=== PATIENT | female | born 1935 | race Caucasian/White ===

== ENCOUNTER → 2016-03-21 | Outpatient (REF) | payer MEDICARE, MEDICAID ==
[~2016-03-21] MED LIST: /ANUSHCSU PR; /ATOR40TA; /ATOR40TA OR; /ATOR40TA PO; /ESOM40CA PO; /MUPI30CR TOP; /OMEP10CA OR; /ONDA4TA OR; /WARF3TA PO; /WARF4TA; /WARF4TA PO; /WARF5TA PO; ABIL2TAB2 PO; ACET-654 PO; ACET500T2 OR; ACET65TA; AKWASOL OU; AMBI10TA; ANUC25SU PR; ARTISOL2 OU; ATEN25TA; ATEN25TA OR; ATEN50TA2 PO; BISA5TAB64 PO; BISAC5TA PO; CALC25TA PO; CALCIUM CITRATE; CALCIUM PO; CENTTAB OR; COLA100C2 OR; COUM; COUM1TAB19 PO; DIGO0.126 OR; DIGO25TA PO; DIOV320T PO; DOCU10ELUD PO; DULC10SU2 PR; ENEMENE3 PR; FERR325T PO; FERR325T3 PO; FURO40TA2 OR; GUAI100S7 PO; HYDR1OI TOP; IMDU60TA PO; IRON325T3 PO; ISOS60TA2 PO; LASI40TA PO; LEFL1TAB4 PO; LEFL20TA PO; LEFLUNOMIDE PO; LIDO1DIS2 TD; LOPE2CA PO; Leflunomide; MAALSUS18 PO; MAGN500T2 OR; MICR10CA PO; MILKSUS OR; MILKSUS PO; MIRALEX PO; MULTIVIT; MULTIVIT PO; MYCOSTATIN TOP; NEXI40CA PO; NEXI40GR OR; NITR0.4S; NITR0.4S SL; NITR4TASL SL; NYST100024 TOP; NYST10PW TOP; OLAN5TAB PO; OSCA200T PO; PERC5TAB8 OR; PERC7.5T8 OR; PLAV75TA2; PLAVIX PO; PRED10TA PO; PRED10TA2; PRED5TAB OR; RANI75TA2 OR; RECLAST; REMICADE; Remicade; SENN8.6T5 OR; SERT25TA2; TENO25TA PO; THERTAB30 PO; TYLE325T5 PO; ULTR50TA PO; VALS40TA; VALS40TA OR; VALS80CA; VALS80CA OR; VENTAER IN; VIT D 2000 PO; VIT D PO; VITA-121 PO; VITA100037 PO; VITA100041 PO; VITA200038 PO; VITA500C PO; VITA500C24 PO; VITAMIN D; VITAMIN D50000 UNT; VITD PO; WARF-18 PO; WARF-58 PO; WARF1TAB OR; ZANT150T; fleet enema PR; vitamin b 12 PO
[2016-03-21 11:16] LABS: MEAN CORPUSCULAR HEMOGLOBIN 26.9 pg (27.0-33.0); MEAN CORPUSCULAR HGB CONC 31.7 g/dl (32.0-36.5); MEAN CORPUSCULAR VOLUME 84.9 fl (80.0-96.0); RED CELL DISTRIBUTION WIDTH 14.1 % (11.5-14.5); WHITE BLOOD COUNT 6.1 K/mm3 (4.0-10.0)
[2016-03-21 11:37] LABS: ALBUMIN 2.5 GM/DL (3.2-5.2); ALBUMIN/GLOBULIN RATIO 0.74 (1.00-1.93); ALKALINE PHOSPHATASE 78 U/L (45-117); ALT/SGPT 16 U/L (12-78); ANION GAP 8 MEQ/L (8-16); AST/SGOT 7 U/L (15-37); BILIRUBIN,TOTAL 0.2 MG/DL (0.2-1.0); BLOOD UREA NITROGEN 17 MG/DL (7-18); CALCIUM LEVEL 9.4 MG/DL (8.8-10.2); CARBON DIOXIDE LEVEL 27 MEQ/L (21-32); CHLORIDE LEVEL 105 MEQ/L (98-107); CREATININE FOR GFR 0.82 MG/DL (0.55-1.02); GLOMERULAR FILTRATION RATE > 60.0 (>32); GLUCOSE, FASTING 145 MG/DL (83-110); POTASSIUM SERUM 3.6 MEQ/L (3.5-5.1); SODIUM LEVEL 140 MEQ/L (136-145); TOTAL PROTEIN 5.9 GM/DL (6.4-8.2)
== END ==
PROVIDERS: ATTEND Internal Medicine
DX: I48.91 Unspecified atrial fibrillation (principal); E55.9 Vitamin D deficiency, unspecified

== ENCOUNTER → 2016-03-28 | Outpatient (REF) | payer MEDICARE, MEDICAID ==
[2016-03-28 12:24] LABS: MEAN CORPUSCULAR HEMOGLOBIN 26.6 pg (27.0-33.0); MEAN CORPUSCULAR HGB CONC 31.1 g/dl (32.0-36.5); MEAN CORPUSCULAR VOLUME 85.4 fl (80.0-96.0); RED CELL DISTRIBUTION WIDTH 14.3 % (11.5-14.5); WHITE BLOOD COUNT 7.7 K/mm3 (4.0-10.0)
[2016-03-28 12:40] LABS: ANION GAP 9 MEQ/L (8-16); BLOOD UREA NITROGEN 17 MG/DL (7-18); CALCIUM LEVEL 9.1 MG/DL (8.8-10.2); CARBON DIOXIDE LEVEL 28 MEQ/L (21-32); CHLORIDE LEVEL 100 MEQ/L (98-107); CREATININE FOR GFR 0.85 MG/DL (0.55-1.02); GLOMERULAR FILTRATION RATE > 60.0 (>32); GLUCOSE, FASTING 170 MG/DL (83-110); POTASSIUM SERUM 3.9 MEQ/L (3.5-5.1); SODIUM LEVEL 137 MEQ/L (136-145)
== END ==
PROVIDERS: ATTEND Internal Medicine
DX: I48.91 Unspecified atrial fibrillation (principal); E55.9 Vitamin D deficiency, unspecified

== ENCOUNTER → 2016-04-04 | Outpatient (REF) | payer MEDICARE, MEDICAID ==
[2016-04-04 09:24] LABS: MEAN CORPUSCULAR HEMOGLOBIN 26.8 pg (27.0-33.0); MEAN CORPUSCULAR VOLUME 83.6 fl (80.0-96.0); RED CELL DISTRIBUTION WIDTH 14.3 % (11.5-14.5); WHITE BLOOD COUNT 5.9 K/mm3 (4.0-10.0)
[2016-04-04 09:39] LABS: ANION GAP 8 MEQ/L (8-16); BLOOD UREA NITROGEN 18 MG/DL (7-18); CALCIUM LEVEL 9.4 MG/DL (8.8-10.2); CARBON DIOXIDE LEVEL 30 MEQ/L (21-32); CHLORIDE LEVEL 103 MEQ/L (98-107); CREATININE FOR GFR 0.68 MG/DL (0.55-1.02); GLOMERULAR FILTRATION RATE > 60.0 (>32); GLUCOSE, FASTING 76 MG/DL (83-110); POTASSIUM SERUM 3.8 MEQ/L (3.5-5.1); SODIUM LEVEL 141 MEQ/L (136-145)
== END ==
PROVIDERS: ATTEND Internal Medicine
DX: I48.91 Unspecified atrial fibrillation (principal); E55.9 Vitamin D deficiency, unspecified

== ENCOUNTER → 2016-04-11 | Outpatient (REF) | payer MEDICARE, MEDICAID ==
[2016-04-11 10:48] LABS: MEAN CORPUSCULAR HEMOGLOBIN 27.1 pg (27.0-33.0); MEAN CORPUSCULAR HGB CONC 32.2 g/dl (32.0-36.5); RED CELL DISTRIBUTION WIDTH 14.4 % (11.5-14.5); WHITE BLOOD COUNT 6.3 K/mm3 (4.0-10.0)
[2016-04-11 11:03] LABS: ANION GAP 10 MEQ/L (8-16); BLOOD UREA NITROGEN 19 MG/DL (7-18); CALCIUM LEVEL 9.1 MG/DL (8.8-10.2); CARBON DIOXIDE LEVEL 29 MEQ/L (21-32); CHLORIDE LEVEL 101 MEQ/L (98-107); CREATININE FOR GFR 0.88 MG/DL (0.55-1.02); GLOMERULAR FILTRATION RATE > 60.0 (>32); GLUCOSE, FASTING 170 MG/DL (83-110); POTASSIUM SERUM 3.7 MEQ/L (3.5-5.1); SODIUM LEVEL 140 MEQ/L (136-145)
== END ==
PROVIDERS: ATTEND Internal Medicine
DX: E55.9 Vitamin D deficiency, unspecified (principal); I48.91 Unspecified atrial fibrillation

== ENCOUNTER → 2016-04-18 | Outpatient (REF) | payer MEDICARE, MEDICAID ==
[2016-04-18 11:01] LABS: MEAN CORPUSCULAR HEMOGLOBIN 26.4 pg (27.0-33.0); MEAN CORPUSCULAR HGB CONC 31.1 g/dl (32.0-36.5); MEAN CORPUSCULAR VOLUME 84.8 fl (80.0-96.0); RED CELL DISTRIBUTION WIDTH 14.5 % (11.5-14.5); WHITE BLOOD COUNT 6.8 K/mm3 (4.0-10.0)
[2016-04-18 11:21] LABS: ALBUMIN 2.6 GM/DL (3.2-5.2); ALBUMIN/GLOBULIN RATIO 0.72 (1.00-1.93); ALKALINE PHOSPHATASE 86 U/L (45-117); ALT/SGPT 19 U/L (12-78); ANION GAP 8 MEQ/L (8-16); AST/SGOT 12 U/L (15-37); BILIRUBIN,TOTAL 0.2 MG/DL (0.2-1.0); BLOOD UREA NITROGEN 17 MG/DL (7-18); CALCIUM LEVEL 9.3 MG/DL (8.8-10.2); CARBON DIOXIDE LEVEL 31 MEQ/L (21-32); CHLORIDE LEVEL 102 MEQ/L (98-107); CREATININE FOR GFR 0.76 MG/DL (0.55-1.02); GLOMERULAR FILTRATION RATE > 60.0 (>32); GLUCOSE, FASTING 143 MG/DL (83-110); POTASSIUM SERUM 3.6 MEQ/L (3.5-5.1); SODIUM LEVEL 141 MEQ/L (136-145); TOTAL PROTEIN 6.2 GM/DL (6.4-8.2)
== END ==
PROVIDERS: ATTEND Internal Medicine
DX: I48.91 Unspecified atrial fibrillation (principal)

== ENCOUNTER → 2016-04-23 | Outpatient (REF) | payer MEDICARE, MEDICAID ==
[2016-04-23 11:07] LABS: INR 2.59
== END ==
PROVIDERS: ATTEND Internal Medicine
DX: I48.91 Unspecified atrial fibrillation (principal); Z79.01 Long term (current) use of anticoagulants

== ENCOUNTER → 2016-04-25 | Outpatient (REF) | payer MEDICARE, MEDICAID ==
[2016-04-25 11:21] LABS: MEAN CORPUSCULAR HEMOGLOBIN 26.3 pg (27.0-33.0); MEAN CORPUSCULAR HGB CONC 31.2 g/dl (32.0-36.5); MEAN CORPUSCULAR VOLUME 84.3 fl (80.0-96.0); RED CELL DISTRIBUTION WIDTH 14.5 % (11.5-14.5); WHITE BLOOD COUNT 6.5 K/mm3 (4.0-10.0)
[2016-04-25 11:43] LABS: ANION GAP 7 MEQ/L (8-16); BLOOD UREA NITROGEN 20 MG/DL (7-18); CALCIUM LEVEL 8.8 MG/DL (8.8-10.2); CARBON DIOXIDE LEVEL 30 MEQ/L (21-32); CHLORIDE LEVEL 103 MEQ/L (98-107); CREATININE FOR GFR 0.88 MG/DL (0.55-1.02); GLOMERULAR FILTRATION RATE > 60.0 (>32); GLUCOSE, FASTING 128 MG/DL (83-110); POTASSIUM SERUM 3.8 MEQ/L (3.5-5.1); SODIUM LEVEL 140 MEQ/L (136-145)
== END ==
PROVIDERS: ATTEND Internal Medicine
DX: I48.91 Unspecified atrial fibrillation (principal); E55.9 Vitamin D deficiency, unspecified

== ENCOUNTER → 2016-05-02 | Outpatient (REF) | payer MEDICARE, MEDICAID ==
[2016-05-02 09:34] LABS: MEAN CORPUSCULAR HEMOGLOBIN 26.9 pg (27.0-33.0); MEAN CORPUSCULAR HGB CONC 31.9 g/dl (32.0-36.5); MEAN CORPUSCULAR VOLUME 84.4 fl (80.0-96.0); RED CELL DISTRIBUTION WIDTH 14.9 % (11.5-14.5); WHITE BLOOD COUNT 7.2 K/mm3 (4.0-10.0)
[2016-05-02 10:04] LABS: ANION GAP 9 MEQ/L (8-16); BLOOD UREA NITROGEN 19 MG/DL (7-18); CALCIUM LEVEL 9.1 MG/DL (8.8-10.2); CARBON DIOXIDE LEVEL 28 MEQ/L (21-32); CHLORIDE LEVEL 104 MEQ/L (98-107); CREATININE FOR GFR 0.88 MG/DL (0.55-1.02); GLOMERULAR FILTRATION RATE > 60.0 (>32); GLUCOSE, FASTING 179 MG/DL (83-110); POTASSIUM SERUM 3.9 MEQ/L (3.5-5.1); SODIUM LEVEL 141 MEQ/L (136-145)
== END ==
PROVIDERS: ATTEND Internal Medicine
DX: E55.9 Vitamin D deficiency, unspecified (principal); I48.91 Unspecified atrial fibrillation

== ENCOUNTER → 2016-05-03 | Outpatient (CLI) | payer MEDICARE, MEDICAID ==
--- NOTE | 2016-05-03 10:52 | REP ---
CT CERVICAL SPINE WITHOUT CONTRAST: HISTORY: Cervicalgia. COMPARISON: 11/07/2013. Disc bulges with associated osteophyte formation are present at the C3-4 through C6-7 levels. There is minimal to mild narrowing of the spinal canal. Uncinate process and/or facet hypertrophy are present at the C3-4 through C7-T1 levels. These findings produce minimal to moderate narrowing of the neural foramina. The C3-4 through C6-7 intervertebral discs are decreased in height consistent with disc degeneration. A 6 mm hypodensity is present in the right thyroid lobe. This most likely represents a cyst. The left thyroid lobe is normal. IMPRESSION: 1. There is cervical spondylosis at the C3-4 through C7-T1 levels. 2. There is a 6 mm hypodensity in the right thyroid lobe. This most likely represents a cyst. Ultrasound may be helpful for further evaluation. Signed by Marko Parsons MD 05/03/2016 10:53 A
--- NOTE | 2016-05-03 10:55 | REP ---
CT HEAD WITHOUT CONTRAST: HISTORY: Cervicalgia. COMPARISON: 06/13/2015. Areas of decreased attenuation are present in the basal ganglia and right thalamus. These represent old lacunar infarctions. Areas of decreased attenuation are present in the periventricular and subcortical white matter. This represents small vessel ischemic disease. There is no intraparenchymal hemorrhage, mass or midline shift. The ventricular system and cortical sulci are dilated consistent with moderate volume loss. There is no extracerebral collection. The visualized sinuses are clear. IMPRESSION: 1. 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 2. Small vessel ischemic disease. 3. Moderate volume loss. Signed by Marko Parsons MD 05/03/2016 10:56 A
== END ==
LOC: M RAD 09:56
PROVIDERS: ATTEND Psychiatry & Neurology Neurology
DX: M43.02 Spondylolysis, cervical region (principal); M54.2 Cervicalgia; R20.2 Paresthesia of skin; I63.09 Cerebral infarction due to thrombosis of other precerebral artery

== ENCOUNTER → 2016-05-22 | Outpatient (REF) | payer MEDICARE, MEDICAID ==
[2016-05-22 11:26] LABS: MEAN CORPUSCULAR HGB CONC 31.7 g/dl (32.0-36.5); MEAN CORPUSCULAR VOLUME 85.4 fl (80.0-96.0); WHITE BLOOD COUNT 7.8 K/mm3 (4.0-10.0)
[2016-05-22 12:06] LABS: CREATININE FOR GFR 0.96 MG/DL (0.55-1.02); GLOMERULAR FILTRATION RATE 59.2 (>32); PERCENT SATURATION 13.8 % (13.2-37.4); POTASSIUM SERUM 4.1 MEQ/L (3.5-5.1)
== END ==
PROVIDERS: ATTEND Internal Medicine
DX: D64.9 Anemia, unspecified (principal); I10 Essential (primary) hypertension; E55.9 Vitamin D deficiency, unspecified

== ENCOUNTER → 2016-06-01 | Outpatient (REF) | payer MEDICARE, MEDICAID ==
[2016-06-01 12:03] LABS: MEAN CORPUSCULAR HEMOGLOBIN 27.2 pg (27.0-33.0); MEAN CORPUSCULAR HGB CONC 31.8 g/dl (32.0-36.5); MEAN CORPUSCULAR VOLUME 85.5 fl (80.0-96.0); RED CELL DISTRIBUTION WIDTH 13.8 % (11.5-14.5); WHITE BLOOD COUNT 7.2 K/mm3 (4.0-10.0)
[2016-06-01 12:40] LABS: ANION GAP 10 MEQ/L (8-16); BLOOD UREA NITROGEN 16 MG/DL (7-18); CALCIUM LEVEL 9.1 MG/DL (8.8-10.2); CARBON DIOXIDE LEVEL 25 MEQ/L (21-32); CHLORIDE LEVEL 104 MEQ/L (98-107); CREATININE FOR GFR 0.67 MG/DL (0.55-1.02); GLOMERULAR FILTRATION RATE > 60.0 (>32); GLUCOSE, FASTING 90 MG/DL (83-110); POTASSIUM SERUM 4.5 MEQ/L (3.5-5.1); SODIUM LEVEL 139 MEQ/L (136-145)
--- NOTE | 2016-06-01 13:36 | REP ---
Chest x-ray: AP semi-erect view. History: Cough and wheezing. Fever. Comparison study: May 29, 2015. Findings: A dual lead pacemaker is seen in the right heart via the left side as before. Heart is mildly enlarged unchanged. The lungs are symmetrically aerated. No infiltrate is seen. Pulmonary vasculature is not increased. No evidence of pleural effusion or pulmonary edema. Impression: Cardiomegaly with pacemaker. No acute infiltrate. Signed by Miguel Angel Marie MD 06/01/2016 02:05 P
== END ==
PROVIDERS: ATTEND Internal Medicine
DX: R50.9 Fever, unspecified (principal); R05 Cough

== ENCOUNTER → 2016-08-22 | Outpatient (CLI) | payer MEDICARE, MEDICAID ==
--- NOTE | 2016-08-22 17:05 | REP ---
CT HEAD WITHOUT CONTRAST: HISTORY: Dysphagia. COMPARISON: 05/03/2016. Areas of increased attentuation are present in the basal ganglia and right thalamus. These represent old lacunar infarctions. Areas of decreased attentuation are present in the periventricular and subcortical white matter. This represents small vessel ischemic disease. There is no intraparenchymal hemorrhage, mass, or midline shift. The ventricular system and cortical sulci are dilated consistent with moderate volume loss. There is no extracerebral collection. The visualized sinuses are clear. IMPRESSION: 1. Old bilateral basal ganglia and right thalamus lacunar infarctions. 2. Small vessel ischemic disease. 3. Moderate volume loss. Signed by Marko Parsons MD 08/22/2016 05:14 P
== END ==
LOC: M RAD 16:29
PROVIDERS: ATTEND Physician Assistant
DX: R13.12 Dysphagia, oropharyngeal phase (principal); I10 Essential (primary) hypertension; E55.9 Vitamin D deficiency, unspecified; E03.9 Hypothyroidism, unspecified; D64.9 Anemia, unspecified; Z88.2 Allergy status to sulfonamides; Z91.040 Latex allergy status; Z88.0 Allergy status to penicillin; Z88.8 Allergy status to other drugs, medicaments and biological substances

== ENCOUNTER → 2016-08-22 | Outpatient (REF) | payer MEDICARE, MEDICAID ==
[2016-08-22 10:37] LABS: MEAN CORPUSCULAR HEMOGLOBIN 26.6 pg (27.0-33.0); MEAN CORPUSCULAR HGB CONC 31.3 g/dl (32.0-36.5); MEAN CORPUSCULAR VOLUME 85.1 fl (80.0-96.0); RED CELL DISTRIBUTION WIDTH 13.5 % (11.5-14.5); WHITE BLOOD COUNT 5.4 K/mm3 (4.0-10.0)
[2016-08-22 11:03] LABS: ANION GAP 9 MEQ/L (8-16); BLOOD UREA NITROGEN 14 MG/DL (7-18); CALCIUM LEVEL 9.2 MG/DL (8.8-10.2); CARBON DIOXIDE LEVEL 25 MEQ/L (21-32); CHLORIDE LEVEL 101 MEQ/L (98-107); FERRITIN 237 NG/ML (8-252); GLOMERULAR FILTRATION RATE > 60.0 (>32); GLUCOSE, FASTING 189 MG/DL (83-110); PERCENT SATURATION 15.1 % (13.2-37.4); POTASSIUM SERUM 4.2 MEQ/L (3.5-5.1); SODIUM LEVEL 135 MEQ/L (136-145); TOTAL IRON BINDING CAPACITY 166 UG/DL (250-450)
== END ==
PROVIDERS: ATTEND Internal Medicine
DX: D64.9 Anemia, unspecified (principal); I10 Essential (primary) hypertension; E55.9 Vitamin D deficiency, unspecified; E03.9 Hypothyroidism, unspecified

== ENCOUNTER 2016-09-22 09:00 | Inpatient (IN) | payer MEDICARE, MEDICAID ==
[~2016-09-22] VITALS: Ht 160 cm; Wt 72.2 kg
[~2016-09-22 09:00] MED LIST changes: +ABIL1TAB13 PO; -ABIL2TAB2 PO; -ACET-654 PO; +ACET1TAB17 PO; +ENEMENE16 PR; -ENEMENE3 PR; +FERR1TAB8 PO; -FERR325T PO; -NYST100024 TOP; +NYST1POW9 TOP; +VITA-182 PO; -VITA100041 PO
[2016-09-22] MEDS: DOCUSATE SODIUM 100 MG CAP PO SCH ×2 (09:00→20:26)
[2016-09-22] MEDS: SENOKOT S TAB PO SCH ×2 (09:00→20:27)
[2016-09-22] MEDS ORDERED: TYLE500T78 PO (09:22)
[2016-09-22] MEDS ORDERED: ROXI1TAB2 PO (09:22)
[2016-09-22] MEDS ORDERED: NUED20CA PO (09:22)
[2016-09-22] MEDS ORDERED: XARE20TA PO (09:22)
[2016-09-22] MEDS ORDERED: PRED5TA PO (09:22)
[2016-09-22] MEDS ORDERED: MYSO50TA5 PO (09:22)
[2016-09-22] MEDS ORDERED: NS 500 ML IV ONE ×2 (09:45→10:30)
[2016-09-22 09:54] LABS: BASO % 0.2 % (0.0-1.0); EOS % 0.5 % (0.0-3.0); LARGE UNSTAINED CELL # 0.1 K/mm3 (0.0-0.4); LARGE UNSTAINED CELL % 1.5 % (0.0-4.0); LYMPH # 0.9 K/mm3 (1.5-4.5); MEAN CORPUSCULAR HEMOGLOBIN 27.5 pg (27.0-33.0); MEAN CORPUSCULAR HGB CONC 32.2 g/dl (32.0-36.5); MEAN CORPUSCULAR VOLUME 85.5 fl (80.0-96.0); MONO # 0.5 K/mm3 (0.0-0.8); MONO % 6.6 % (0.0-5.0); NEUTROPHILS # 6.7 K/mm3 (1.8-7.7); NEUTROPHILS % 81.2 % (36.0-66.0); PLATELET COUNT, AUTOMATED 136 k/mm3 (150-450); RED CELL DISTRIBUTION WIDTH 14.8 % (11.5-14.5); WHITE BLOOD COUNT 8.2 K/mm3 (4.0-10.0)
[2016-09-22 10:03] LABS: INR 2.23
--- NOTE | 2016-09-22 10:04 | REP ---
Clinical: Cerebrovascular accident. Comparison: 08/22/2016. Findings: Age-related atrophy and microvascular ischemic changes are appreciated. The ventricles and sulci are symmetric. Simmons-white differentiation is maintained. There is no evidence for acute intracranial hemorrhage, mass/mass effect, pathology or infarction. No extra-axial fluid collection. Calvarium is intact. Paranasal sinuses and mastoid air cells are clear. Impression: Age related atrophy and microvascular ischemic changes. No acute intracranial hemorrhage, infarction, or mass/mass effect. Signed by Boni Nieto MD 09/22/2016 09:56 A
--- NOTE | 2016-09-22 10:08 | REP ---
Clinical: Fever and cough. Comparison: 06/01/2016. Findings: Chronic stable changes are appreciated. Trace superimposed right lower lobe atelectasis suggested. No definite effusion. No pneumothorax. Skeletal structures stable. Impression: Chronic changes with suspected basilar atelectasis. Signed by Boni Nieto MD 09/22/2016 10:00 A
[2016-09-22 10:24] LABS: ABG BASE EXCESS -0.7 (-2.0-2.0); ABG HCO3 22.7 MEQ/L (22.0-26.0); ABG PARTIAL PRESSURE CO2 32.8 mmHg (35.0-45.0); ABG PARTIAL PRESSURE O2 98.6 mmHg (75.0-100.0); ABG STANDARD HCO3 23.9 MEQ/L (22.0-26.0); ABG TOTAL CO2 23.7 MEQ/L (23.0-31.0); ABG pH (ARTERIAL) 7.458 UNITS (7.350-7.450)
[2016-09-22] MEDS ORDERED: ACETAMINOPHEN 650 MG SUPP PR ONE (10:30)
[2016-09-22 10:31] LABS: ANION GAP 7 MEQ/L (8-16); BLOOD UREA NITROGEN 23 MG/DL (7-18); CARBON DIOXIDE LEVEL 26 MEQ/L (21-32); CHLORIDE LEVEL 101 MEQ/L (98-107); CREATININE FOR GFR 0.82 MG/DL (0.55-1.02); GLOMERULAR FILTRATION RATE > 60.0 (>32); GLUCOSE, FASTING 176 MG/DL (83-110); SODIUM LEVEL 134 MEQ/L (136-145)
[2016-09-22] MEDS ORDERED: VITA-122 PO (10:36)
[2016-09-22] MEDS ORDERED: IMIPENEM/CILASTATIN 500 MG in D5W MINI-BAG PLUS 100 ML IV ONE (11:15)
[2016-09-22] MEDS ORDERED: MOM 30ML SUSPENSION UDC PO PRN (12:45)
[2016-09-22] MEDS ORDERED: BISACODYL 10 MG SUPP PR PRN (12:45)
[2016-09-22] MEDS ORDERED: FLEET ENEMA PR PRN (12:45)
[2016-09-22] MEDS ORDERED: ONDANSETRON 4MG/2ML VIAL (J2405) IV PRN (13:00)
[2016-09-22] MEDS ORDERED: NS 1,000 ML IV SCH (13:30)
[2016-09-22 14:24] VITALS: BP 119/80
[2016-09-22 16:00] VITALS: BP 121/81
--- NOTE | 2016-09-22 16:17 | PHACANCOPD ---
PHARMACY VANCOMYCIN DOSING Pt Demographics Demographics Patient Age:81 , Weight:73.800 , Gender: female Adjusted Body Weight Date: 09/22/16, Adjusted Body Weight: Kg Events Past 24 Hours Events Past 24 Hours: YES: Pending Diagnostics Vancomycin Vancomycin indication: pyelonephritis Vancomycin Target Ranges: 15-20 mcg/ml Vancomycin Load Y/N: Yes Load Dose Date Time Vancomycin Load Dose: 1500mg Date: 09/22/16 Time: 1600 Vancomycin Dose Date: 09/22/16. Current Vancomycin Dose: [1g IV Q18H] Intermittent Dosing?: No Labs Labs Item Value Date Time White Blood Count 8.2 K/mm3 09/22/16 0943 Lactic Acid Level 2.1 MMOL/L *H 09/22/16 0943 Creatinine 0.82 MG/DL 09/22/16 0943 Blood Urea Nitrogen 23 MG/DL H 09/22/16 0943 Micro Microbiology 09/22/16 Blood Culture, Received Pending 09/22/16 Blood Culture, Received Pending 09/22/16 Urine Culture, Received Pending Creatinine Clearance Date:09/22/16. Estimated Creatinine Clearance: [~46.3ml/min]. Pending Labs Vancomycin trough scheduled 09/24/16 @2100 Assessment and Plan Maintaining Current Dose?: Yes Reason for dose change: No Dose Change Pharmacist Note Pharmacist Note Date: 09/22/16. Pharmacist note: Day #1 broad spectrum IV meropenem/IV vancomycin initiated with a 1500mg loading dose, followed by a maintenance regimen of 1g IV Q18H for the treatment of pyelonephritis - aiming for a goal trough of 15- 20mcg/ml. 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 WBC is currently WNL, pulse and RR are elevated, and the patient has been febrile. Blood and urine cultures are pending. A vancomycin trough has been scheduled for 09/24/16 @ 2100, prior to the 4th dose. We will continue to monitor and make dose adjustments as needed. [facility] Sep 22, 2016 16:17
[2016-09-22] MEDS: PRIMIDONE 50 MG TAB PO SCH (16:28)
[2016-09-22] MEDS: FERROUS SULFATE 325MG TAB PO SCH (16:28)
[2016-09-22] MEDS: predniSONE 5 MG TAB PO SCH (16:29)
[2016-09-22] MEDS: ACETAMINOPHEN 500 MG TAB PO SCH ×2 (16:29→20:26)
[2016-09-22] MEDS: ATENOLOL 50 MG TAB PO SCH ×2 (16:29→20:26)
[2016-09-22] MEDS: TEARS NATURALE FREE OPHTH DROP VIAL OU SCH ×2 (16:30→20:27)
[2016-09-22] MEDS: VANCOMYCIN HCL 1,000 MG, VIAL MATE ADAPTER 1 EACH in D5W 250 ML IV SCH (16:30)
[2016-09-22] MEDS ORDERED: VANCOMYCIN HCL 500 MG in D5W MINI-BAG PLUS 100 ML IV ONE (17:00)
[2016-09-22 19:59] VITALS: BP 113/71
[2016-09-22] MEDS: RIVAROXABAN 20 MG TAB (XARELTO) PO SCH (20:27)
[2016-09-22] MEDS: VITAMIN D 1,000 INTERNATIONAL UNITS TABLET PO SCH (20:27)
--- NOTE | 2016-09-22 21:25 | ECGEPIP ---
Stationary ECG Study [facility] - ED Test Date: 2016-09-22 Pat Name: INNA BRAGG Department: Room: - Gender: F Weld Fitter: KYMBERLY : 1935 Requested By: KAEL Rebollar Order Number: [id number] Reading MD: Barbara Gonzalez Measurements Intervals [place] Rate: 134 P: IN: 0 QRS: -26 QRSD: 78 T: 35 QT: 272 QTc: 406 Interpretive Statements ATRIAL FLUTTER/TACHYCARDIA WITH RAPID VENTRICULAR RESPONSE BORDERLINE LEFT AXIS DEVIATION LOW QRS VOLTAGE IN EXTREMITY LEADS ST ELEVATION CONSISTENT WITH INJURY, PERICARDITIS, OR EARLY REPOLARIZATION Electronically Signed On 09-22-2016 21:24:42 EDT by Barbara Gonzalez
--- NOTE | 2016-09-22 22:10 | HPE ---
DATE OF ADMISSION: 09/22/2016 PRIMARY CARE PROVIDER: Dr. Fozia Almanzar CHIEF COMPLAINT: Slurred speech, right-sided facial droop, right-sided weakness. HISTORY OF PRESENT ILLNESS: This is an 81-year-old female patient with underlying medical history of atrial fibrillation, on Xarelto, Alzheimer dementia, deep vein thrombosis (DVT), pacemaker, chronic kidney disease (CKD), stage III, chronic obstructive pulmonary disease (COPD), obstructive sleep apnea, on continuous positive airway pressure (CPAP), history of constipation, hypertension, gastroesophageal reflux disease (GERD), rheumatoid arthritis was sent in the jail to [facility] with acute onset around 7 o'clock this morning, noticing that the patient was having some slurred speech and right-sided facial droop with slight weakness of upper and lower extremities. Baseline per patient is nonambulatory. Patient is a very poor historian with dementia. Baseline wheelchair bound. Walks with a walker with assistance Patient recently also had a fall. Was noted to be febrile at the nursing with a fever of 104. Subsequently brought to the emergency room. No respiratory complaint. No chest pain, pressure, or discomfort, with normal glucose. Patient does not know why she is here. Denies any headache, vision change, hearing change. ALLERGIES: BENZOCAINE, CEPHALOSPORIN, CIPROFLOXACIN, GOLD-CONTAINING PRODUCTS, Latex, MISOPROSTOL, PENICILLIN, PENICILLIN CROSS-REACTOR, SALICYLATE, SULFA, SULFA DRUG CROSS-REACTOR DRUGS, DIGOXIN, orange, peppermint flavor, MORPHINE, AMBIEN, ASPIRIN, HYDROCODONE. PAST MEDICAL HISTORY: 1. History of superior and inferior pubic rami fractures. 2. Obstructive sleep apnea, on CPAP. 3. History of DVT, on anticoagulation. 4. Atrial fibrillation, on anticoagulation. 5. Anemia. 6. Rheumatoid arthritis. 7. Dyslipidemia. 8. Hypertension. 9. GERD. 10. Iron deficiency. 11. Vitamin B12 deficiency. 12. Alzheimer dementia. PAST SURGICAL HISTORY: Pacemaker placement. SOCIAL HISTORY: Patient lives at jail. No recorded smoking or alcohol use. Patient is a retired flower shop keeper. DO NOT RESUSCITATE/DO NOT INTUBATE on medical order for life-sustaining treatment (MOLST) form. REVIEW OF SYSTEMS: Unable to obtain given patient's mental status, but patient denies any chest pain, pressure, or discomfort. Does not know why she is here. Denies any abdominal pain. Denies any nausea or vomiting. HOME MEDICATIONS: - acetaminophen 1000 mg by mouth three times a day - Abilify 2 mg by mouth at bedtime - artifical tears - atenolol 50 mg by mouth twice a day - Dulcolax suppository 10 mg per rectum daily - vitamin D 2000 units by mouth every evening - ferrous sulfate 325 mg by mouth daily - isosorbide mononitrate 60 mg by mouth every morning - leflunomide 20 mg by mouth every morning - milk of magnesia 30 mL by mouth daily as needed - nitroglycerine sublingual 0.4 mg as needed - Nuedexta by mouth twice a day - oxycodone 2.5 mg by mouth twice a day as needed - prednisone 5 mg by mouth daily - primidone 100 mg by mouth daily - Xarelto 20 mg by mouth daily - enemas as needed daily PHYSICAL EXAMINATION: VITAL SIGNS: Temperature 100.6, pulse 132, respiratory rate 25, blood pressure 116/74, pulse oximetry 95% on room air. GENERAL: Patient obese, awake, alert, oriented to person only. HEENT: Normocephalic, atraumatic. PULMONARY: Bilaterally clear to auscultation. Distant breath sounds. No wheezes, rales, or rhonchi. Pacemaker. CARDIAC: Tachycardia. Seems regular. S1, S2, ABDOMEN: Soft and nontender. Positive bowel sounds. EXTREMITIES: No edema, bilateral lower extremities. NEUROLOGIC: Alert and oriented to person only. Right-sided flattening of the nasolabial fold. Tongue is midline. Pupils are bilaterally equal and reactive. Extraocular muscles intact. Facial sensation seems to be intact. Difficulty finding words. Strength seems to be left upper and lower extremities 5/5. Right side upper and lower extremities seem to be slightly waker, slightly better than 4/5. Does cooperate with physical exam but was very low to respond. EKG shows atrial flutter with tachycardia into 120s. LABORATORY DATA: WBC 8.2, hemoglobin and hematocrit 10.2/31.7, platelets 136. Chemistry: Sodium 134, potassium 4, chloride 101, bicarbonate 26, BUN 23, creatinine 0.8, lactic acid 2.1. Cardiac enzymes negative times one. Chest x-ray: Chronic changes, bibasilar atelectasis. No acute finding. ASSESSMENT AND PLAN: This is an 81-year-old female patient with underlying medical history of atrial fibrillation, deep vein thrombosis (DVT), Alzheimer dementia with pacemaker, chronic kidney disease (CKD), stage III, chronic obstructive pulmonary disease (COPD), obstructive sleep apnea, constipation, hypertension, gastroesophageal reflux disease (GERD), rheumatoid arthritis was brought in here from jail with fevers and right-sided weakness, slurred speech, and flattening of right nasolabial fold. 1. Slurred speech, right-sided weakness, and flattening of right-sided nasolabial fold. Possible CVA. CT scan appreciated. Patient on Xarelto. Patient had similar symptoms during previous admission, according to medical record. Case discussed with Dr. Nye. Given patient's mildly thrombocytopenic, will not escalate antiplatelet agents. Will keep to on Xarelto. Repeat CT tomorrow. Physical therapy (PT)/occupational therapy (OT), speech and swallow, aspiration precaution. Possible inciting event is the urinary tract infection (UTI) given patient has been febrile over the past 2 days. Aspiration precautions. Pureed and nectar-thickened diet for now. Pending sputum swallow, PT/OT. Repeat CT scan tomorrow. Unable to do a MRI given pacemaker. Cardiac enzymes, neurologic checks. 2. Fevers. Sepsis secondary to UTI. Patient with fever and tachycardia. Followup urine culture. On meropenem and vancomycin based on previous cultures. Will consider infectious disease consultation. Followup cultures. IV fluids. Repeat lactic acid. 3. Atrial fibrillation. Continue beta blockers and Xarelto. Telemetry monitoring. Cardiac enzymes. 4. History of DVT. Continue Xarelto. 5. Underlying CKD, stage III, currently at baseline. Continue to follow. 6. COPD. Patient not have any wheeze. Continue to monitor. 7. Obstructive sleep apnea. Obstructive sleep apnea (AC) protocol. Will try to obtain CPAP from jail. 8. Constipation. Bowel regimen is prescribed. 9. Hypertension. Will continue beta sravani only. Permissive hypertension given active infection and questionable CVA. 10. GERD. Continue home medication. 11. History of rheumatoid arthritis. Continue steroid. 12. DVT prophylaxis. Patient on Xarelto. DISPOSITION PLANNING: Pending clinical improvement. Repeat CTs and cultures. Patient with multiple comorbidities. Guarded prognosis. DO NOT RESUSCITATE, DO NOT INTUBATE.
[2016-09-22 22:12] VITALS: BP 102/72
[2016-09-22] MEDS: MEROPENEM INJ 1 GM in D5W MINI-BAG PLUS 100 ML IV SCH (23:36)
[2016-09-23 00:13] VITALS: BP 121/71
[2016-09-23 04:52] VITALS: BP 112/64
[2016-09-23 05:12] LABS: MEAN CORPUSCULAR HEMOGLOBIN 28.2 pg (27.0-33.0); MEAN CORPUSCULAR HGB CONC 32.9 g/dl (32.0-36.5); MEAN CORPUSCULAR VOLUME 85.8 fl (80.0-96.0); RED CELL DISTRIBUTION WIDTH 14.9 % (11.5-14.5); WHITE BLOOD COUNT 5.9 K/mm3 (4.0-10.0)
[2016-09-23 05:39] LABS: ANION GAP 5 MEQ/L (8-16); BLOOD UREA NITROGEN 27 MG/DL (7-18); CALCIUM LEVEL 9.4 MG/DL (8.8-10.2); CARBON DIOXIDE LEVEL 25 MEQ/L (21-32); CHLORIDE LEVEL 109 MEQ/L (98-107); CREATININE FOR GFR 0.76 MG/DL (0.55-1.02); GLOMERULAR FILTRATION RATE > 60.0 (>32); GLUCOSE, FASTING 135 MG/DL (83-110); MAGNESIUM LEVEL 1.9 MG/DL (1.8-2.4); POTASSIUM SERUM 3.9 MEQ/L (3.5-5.1); SODIUM LEVEL 139 MEQ/L (136-145); T UPTAKE 39 % (30-39); THYROXINE (T4) 7.4 UG/DL (4.5-12.0)
[2016-09-23 08:00] VITALS: BP 98/55
--- NOTE | 2016-09-23 08:53 | REP ---
Clinical: Shortness of breath. Comparison: 70 17. Findings: Evaluation is limited by portable technique, underpenetration and poor inspiratory effort. Cardiomegaly remains stable. Pulmonary vascular congestion and interstitial edema cannot be excluded. Underlying chronic changes are noted. No obvious acute focal consolidation, definite effusion, or pneumothorax. Skeletal structures stable. Impression: Cannot exclude pulmonary vascular congestion or interstitial edema. Signed by Boni Nieto MD 09/23/2016 08:43 A
[2016-09-23] MEDS: NUEDEXTA PO SCH ×2 (09:00→21:00)
[2016-09-23] MEDS: LEFLUNOMIDE 20MG TABLET (PATIENT'S OWN MED) PO SCH (09:00)
[2016-09-23] MEDS: TEARS NATURALE FREE OPHTH DROP VIAL OU SCH ×4 (09:01→21:09)
[2016-09-23] MEDS: predniSONE 5 MG TAB PO SCH (09:01)
[2016-09-23] MEDS: ACETAMINOPHEN 500 MG TAB PO SCH ×3 (09:01→21:08)
[2016-09-23] MEDS: FERROUS SULFATE 325MG TAB PO SCH (09:01)
[2016-09-23] MEDS: SENOKOT S TAB PO SCH ×2 (09:01→21:07)
[2016-09-23] MEDS: ATENOLOL 50 MG TAB PO SCH ×2 (09:02→21:08)
[2016-09-23] MEDS: PRIMIDONE 50 MG TAB PO SCH (09:02)
[2016-09-23] MEDS: VANCOMYCIN HCL 1,000 MG, VIAL MATE ADAPTER 1 EACH in D5W 250 ML IV SCH (09:02)
[2016-09-23] MEDS ORDERED: FUROSEMIDE 20 MG/2 ML VIAL (J1940) IV ONE (11:00)
--- NOTE | 2016-09-23 11:04 | IPN ---
DATE OF SERVICE: 09/23/2016 The patient seen and examined. No acute events overnight. Continues to be mildly lethargic. Arousal to verbal stimuli. Follows simple commands. Denies any chest pain, pressure, or discomfort. The patient is a very poor historian. Denies any respiratory difficulties. VITAL SIGNS: Temperature 96.5, pulse 68, respiration 20, blood pressure 98/55, pulse oximetry 97% on 2 liters nasal cannula. TELEMETRY: Shows intermittent pacer spike with no capture. LABORATORY: WBC 5.9, hemoglobin and hematocrit 8.9/27.1, platelets 115. Chemistry: Sodium 139, potassium 3.9, chloride 109, bicarbonate 25, BUN 27, creatinine 0.76, lactic acid 1.7. PHYSICAL EXAMINATION: GENERAL: The patient obese, awake, alert, oriented to person only, slow to respond. HEENT: Normocephalic, atraumatic. PULMONARY: Distant breath sounds bilateral. No wheeze, rales, or rhonchi. Pacemaker in place. CARDIAC: Irregular, nontachycardia. S1, S2. ABDOMEN: Soft, nontender. Positive bowel sounds. EXTREMITIES: No edema bilateral lower extremities. NEUROLOGIC: The patient oriented to person only. Arousable to verbal stimuli. Extremities seem to be cool and clammy. Right-sided flattening on nasolabial fold. Tongue is midline. Pupils are equal, round, and reactive. Extraocular muscles are intact bilateral. Sensation to light touch intact on symmetrical bilateral face. Extremities: Left upper and lower extremities 5/5. Right upper and lower extremities slightly weaker but slightly better than 4/5. Cooperative with physical examination but very slow to respond. ASSESSMENT AND PLAN: This is an 81-year-old female patient with underlying medical history of atrial fibrillation, deep venous thrombosis (DVT) on anticoagulation, Alzheimer dementia with pacemaker, chronic kidney disease (CKD) stage III, chronic obstructive pulmonary disease (COPD), obstructive sleep apnea , constipation, hypertension, gastroesophageal reflux disease (GERD), rheumatoid arthritis, was brought here from senior care with fevers, right-sided weakness, slurred speech, and flattening of right nasolabial fold. PROBLEMS: 1. Slurred speech, right-sided weakness, and flattening on the right nasolabial fold. Symptoms seem to be improving today compared to yesterday. Possible cerebrovascular accident (CVA). CT scan appreciated. The patient on Xarelto. The patient with similar symptoms previously on previous admission, according to medical record. The case discussed with neurology, Dr. Nye. Given the patient is mildly thrombocytopenic, Dr. Nye recommended against escalating antiplatelet agent. Will keep Xarelto. Repeat CTs tomorrow. Most likely, neurological symptom is secondary to underlying infection. Physical therapy (PT)/occupational therapy (OT), speech and swallow evaluation, aspiration precaution. Treat underlying urinary tract infection (UTI). Cardiac enzymes appreciated. Neuro checks. Unable to perform MRI, given the patient with pacemaker. 2. Fever, sepsis secondary to urinary tract infection. Tachycardia resolved with intravenous (IV) fluids. Continue antibiotics, meropenem and vancomycin, given the patient's allergy and previous cultures, considering infectious disease consultation and followup cultures. Will hold IV fluids, given xr evidence of pulmonary vascular congestion. 3. Atrial fibrillation. Continue beta sravani and Xarelto. Telemetry and cardiac enzymes appreciated. 4. History of deep venous thrombosis. Continue Xarelto. 5. Underlying chronic kidney disease stage III, currently at baseline. Continue to follow. 6. Pulmonary vascular congestion. X-rays repeat appreciated. Will get echocardiogram. 7. Irregular heart rhythms on telemetry with questionable pacer capture. Dr. Arthur has been called to interrogate the pacemaker. 8. Chronic obstructive pulmonary disease (COPD). The patient currently not having any wheeze. Continue to monitor. 9. Obstructive sleep apnea. Obstructive sleep apnea (AC) protocol. Will obtain continuous positive airway pressure (CPAP) from senior care if possible. 10. Constipation. Bowel regimen as ordered. 11. History of rheumatoid arthritis. Continue steroid. 12. Gastroesophageal reflux disease (GERD). Continue home medication. 13. Hypertension. Continue beta blockers. Permissive hypertension with borderline blood pressure and active infection. Will hold other blood pressure medications. 14. Deep venous thrombosis prophylaxis. The patient on Xarelto for atrial fibrillation (AFib) and history of DVT. DISPOSITION: Pending clinical improvement. Repeat CT scans, cultures, interrogation of pacemaker. The patient with multiple comorbidities. Guarded prognosis. DO NOT RESUSCITATE (DNR). DO NOT INTUBATE (DNI). MTDD
[2016-09-23 11:30] VITALS: BP 100/56
[2016-09-23] MEDS: MEROPENEM INJ 1 GM in D5W MINI-BAG PLUS 100 ML IV SCH ×2 (12:45→23:48)
--- NOTE | 2016-09-23 14:51 | REP ---
Clinical: Cerebrovascular accident. Comparison: 05/03/2016. 09/22/2016. Findings: Age-related atrophy and microvascular ischemic changes are appreciated. The ventricles and sulci are symmetric. Simmons-white differentiation is maintained. There is no evidence for acute intracranial hemorrhage, mass/mass effect, pathology or infarction. No extra-axial fluid collection. Calvarium is intact. Paranasal sinuses and mastoid air cells are clear. Impression: Age related atrophy and microvascular ischemic changes. No acute intracranial hemorrhage, infarction, or mass/mass effect. Signed by Boni Nieto MD 09/23/2016 02:43 P
[2016-09-23 16:00] VITALS: BP 95/52
[2016-09-23] MEDS: RIVAROXABAN 20 MG TAB (XARELTO) PO SCH (17:20)
--- NOTE | 2016-09-23 18:34 | REP ---
Clinical: Pneumonia. Comparison: 07/11/2011. Findings: There is evidence for cardiomegaly with small to moderate pericardial effusion as well as pulmonary vascular congestion and edema including perihilar and lower lobe atelectasis with small/moderate pleural effusions and cephalization. Atherosclerotic changes to the thoracic aorta and coronary arteries noted along with pacemaker. No significant adenopathy. Surrounding musculoskeletal structures demonstrate age-related changes. Limited upper abdomen demonstrates stable left adrenal adenoma. Impression: Cardiomegaly with small to moderate pericardial effusion, bilateral atelectasis, small to moderate effusions and cephalization. Findings compatible with CHF and pulmonary edema. Underlying pneumonia cannot definitively be excluded. Signed by Boni Nieto MD 09/23/2016 06:25 P
[2016-09-23 20:35] VITALS: BP 116/76
[2016-09-23] MEDS: VITAMIN D 1,000 INTERNATIONAL UNITS TABLET PO SCH (21:07)
[2016-09-24] VITALS (7 sets, daily range): BP systolic 108–138; BP diastolic 56–78
[2016-09-24] MEDS: VANCOMYCIN HCL 1,000 MG, VIAL MATE ADAPTER 1 EACH in D5W 250 ML IV SCH (04:25)
[2016-09-24] MEDS: SLF 3 ML SYR IV SCH ×3 (04:26→20:40)
[2016-09-24 05:13] LABS: MEAN CORPUSCULAR HEMOGLOBIN 27.7 pg (27.0-33.0); MEAN CORPUSCULAR HGB CONC 32.3 g/dl (32.0-36.5); MEAN CORPUSCULAR VOLUME 85.8 fl (80.0-96.0); RED CELL DISTRIBUTION WIDTH 14.7 % (11.5-14.5); WHITE BLOOD COUNT 5.8 K/mm3 (4.0-10.0)
[2016-09-24 05:34] LABS: ANION GAP 7 MEQ/L (8-16); BLOOD UREA NITROGEN 22 MG/DL (7-18); CALCIUM LEVEL 9.5 MG/DL (8.8-10.2); CARBON DIOXIDE LEVEL 26 MEQ/L (21-32); CHLORIDE LEVEL 106 MEQ/L (98-107); CREATININE FOR GFR 0.54 MG/DL (0.55-1.02); GLOMERULAR FILTRATION RATE > 60.0 (>32); GLUCOSE, FASTING 81 MG/DL (83-110); MAGNESIUM LEVEL 1.5 MG/DL (1.8-2.4); POTASSIUM SERUM 3.2 MEQ/L (3.5-5.1); SODIUM LEVEL 139 MEQ/L (136-145)
[2016-09-24] MEDS: FERROUS SULFATE 325MG TAB PO SCH (08:55)
[2016-09-24] MEDS: POTASSIUM CHLORIDE 10 MEQ SR TABLET PO SCH ×3 (08:55→20:39)
[2016-09-24] MEDS: ACETAMINOPHEN 500 MG TAB PO SCH ×3 (08:55→20:39)
[2016-09-24] MEDS: predniSONE 5 MG TAB PO SCH (08:55)
[2016-09-24] MEDS: PRIMIDONE 50 MG TAB PO SCH (08:55)
[2016-09-24] MEDS: ATENOLOL 50 MG TAB PO SCH ×2 (08:56→20:40)
[2016-09-24] MEDS: TEARS NATURALE FREE OPHTH DROP VIAL OU SCH (08:56)
[2016-09-24] MEDS: SENOKOT S TAB PO SCH (08:56)
[2016-09-24] MEDS: NUEDEXTA PO SCH (09:00)
[2016-09-24] MEDS: LEFLUNOMIDE 20MG TABLET (PATIENT'S OWN MED) PO SCH (09:00)
--- NOTE | 2016-09-24 10:53 | ECHO ---
DATE OF PROCEDURE: 09/23/2016 REFERRING PHYSICIAN: Dr. Jerrica Leyva INDICATION: Transient cerebral ischemia, unspecified. HEIGHT: 63 inches WEIGHT: 160 pounds 2D MEASUREMENTS: Aortic root: 3.0 cm Proximal ascending aorta: 3.3 cm Left atrium: 4.7 cm Ventricular septum: 1.20 cm Posterior wall: 1.30 cm Left ventricle diastole: 4.0 cm Left ventricle systole: 2.3 cm LVOT: 2.1 cm Left atrial volume index: 55 Inferior vena cava: 2.5 cm with marked reduction of respiratory variation, suggestive of elevated central venous pressure of at least 20 mmHg DOPPLER MEASUREMENTS: Aortic valve velocity: 228 cm/s LVOT velocity: 85.5 cm/s LVOT VTI: 17.8 cm Mild mitral regurgitation. Mitral E velocity: 177 cm/s Mitral A velocity: 40.7 cm/s Mitral deceleration time: 148 ms Mild tricuspid regurgitation. Estimated right ventricle systolic pressure: At least 55 mmHg, assuming a right atrial pressure of at least 20 mmHg MITRAL ANNULAR TISSUE DOPPLER: E prime lateral: 6.9 cm/s E prime septal: 5.9 cm/s DESCRIPTION: Rhythm was sinus with frequent premature atrial contractions (PACs). Some ventricular pacing was seen. This was a moderately technically difficult echocardiogram. This was a 2D, M-mode, color flow Doppler, and pulse wave Doppler examination and included mitral annular tissue Doppler. CONCLUSIONS: 1. Mild concentric left ventricular hypertrophy. Normal left ventricle regional wall motion and wall thickening. Normal left ventricle (LV) systolic function. Left ventricular ejection fraction (LVEF) 50% by visual estimate. 2. Grade 3 or grade 4 LV diastolic dysfunction (restrictive filling pattern). 3. Severe left atrial dilatation. 4. Suggestive of moderate elevation of estimated right ventricle systolic pressure (at least 55 mmHg). Mild tricuspid regurgitation. 5. Elevated central venous pressure of at least 20 mmHg. Inferior vena cava plethora. 6. Small pericardial effusion without diastolic chamber collapse. 7. Moderate mitral annular calcification. Mild mitral regurgitation. No mitral stenosis. 8. Moderate aortic valve sclerosis of a three-cusp aortic valve. No aortic stenosis or regurgitation. 9. Presence of endocardial, right atrial and right ventricular pacemaker leads.
[2016-09-24] MEDS ORDERED: MAG SULF 1GM/100ML (MAG RUN) 1 GM in APPROPRIATE DILUENT 1 EA IV ONE (11:15)
[2016-09-24] MEDS: MEROPENEM INJ 1 GM in D5W MINI-BAG PLUS 100 ML IV SCH (12:10)
[2016-09-24] MEDS: POLYVINYL ALCOHOL OPHTH SOLN 15 ML(LIQUITEARS) OU SCH ×3 (13:12→20:40)
[2016-09-24] MEDS: RIVAROXABAN 20 MG TAB (XARELTO) PO SCH (17:02)
--- NOTE | 2016-09-24 18:31 | IPN ---
DATE: 09/24/2016 The patient seen and examined. No acute events overnight. Continues to be mildly lethargic. Arousable and follows simple commands. Denies any chest pain, pressure, or discomfort. Denies any abdominal pain, poor historian. EKG shows mild concentric left arterial left ventricular hypertrophy. Normal left ventricular regional wall motion, wall thickness, elevation systolic ejection fraction 15%. Grade 3 or 4 left ventricular diastolic dysfunction. Severe left atrial dilatation. Mild tricuspid regurgitation. LABORATORY: WBC 5.8, hemoglobin and hematocrit 9.5/29.5, platelets 141. Chemistry: Sodium 139, potassium 3.2, chloride 106, bicarbonate 26, BUN 22, creatinine 0.54, magnesium 1.5, d 1.7. PHYSICAL EXAMINATION: GENERAL: The patient obese, awake, alert, oriented to person only, slow to respond. HEENT: Normocephalic, atraumatic. PULMONARY: Distant breath sounds bilateral. No wheeze, rales, or rhonchi. Pacemaker in place. CARDIAC: Irregular, nontachycardia. S1, S2. ABDOMEN: Soft, nontender. Positive bowel sounds. EXTREMITIES: No edema bilateral lower extremities. NEUROLOGIC: The patient oriented to person only. Arousable to verbal stimuli. Cool to the touch. Right-sided flattening on nasolabial fold. Tongue is midline. Pupils bilateral equal, round, and reactive. Extraocular muscles are intact. Sensation to light touch symmetrical both sides. EXTREMITIES: 5/5 strength left upper and lower extrmeities. Right upper and lower extremities slightly weaker but seems to be intact. Cooperative with physical examination but very slow to respond. 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 PROBLEMS: 1. Slurred speech, right-sided weakness, and flattening on the right nasolabial fold. Symptoms seem to be improving today compared to yesterday. Possible cerebrovascular accident (CVA). CT scan appreciated. The patient on Xarelto. The patient with similar symptoms previously on previous admission, according to medical record. The case discussed with neurology, Dr. Nye. Given the patient is mildly thrombocytopenic, Dr. Nye recommended against escalating antiplatelet agent. Will continue Xarelto. Repeat CT scan appreciated. Echocardiogram appreciated. Neurological symptom possibly secondary to underlying infection. Physical therapy (PT)/occupational therapy (OT), speech and swallow evaluation. Baseline is Cathy lift and bed bound. Cardiac enzymes appreciated. Neuro checks. Unable to perform MRI, due to patient having a pacemaker. Patient on pureed honey thickened liquid. 2. Fever, sepsis secondary to ecoli and urinary tract infection. Tachycardia resolved. Intravenous (IV) fluids given. Continue antibiotics. Patient initially on meropenem and vancomycin. Consulted infectious disease. Antibiotics switched to nitrofurantoin. IV fluids has been discontinued secondary to pulmonary vascular congestion. 3. Atrial fibrillation. On telemetry. Pace maker adjustment interoperation by Dr. Arthur. Continue beta sravani Xarelto. Telemetry appreciated. Cardiac enzyme appreciated. 4. Acute diastolic congestive heart failure echo is appreciated. Lasix has been given. Strict intake and output continue to monitor. 5. Hypokalemia. Continue supplementation. 6. History of deep venous thrombosis (DVT) Continue Xarelto. 7. Chronic kidney disease stage III, currently at baseline. Continue to follow. 8. Chronic obstructive pulmonary disease (COPD). The patient currently not having any wheeze. Continue to monitor. 9. Obstructive sleep apnea. Obstructive sleep apnea (AC) protocol. Will resume continuous positive airway pressure (CPAP) at the nursing facility. 10. Constipation. Bowel regimen as ordered. 11. History of rheumatoid arthritis. Continue steroid. Home medication on formulary. Will resume after discharge. 12. Gastroesophageal reflux disease (GERD). Continue home medication. 13. Hypertension. Continue beta blockers. Monitor blood pressure with holding other blood pressure medication. 14. Deep venous thrombosis prophylaxis. The patient on Xarelto for atrial fibrillation (AFib). DISPOSITION: DO NOT RESUSCITATE (DNR). DO NOT INTUBATE (DNI). Will [facility] the [facility] once patient's condition improves, likely over the next 24-48 hours. Patient with multiple comorbidities. Poor overall prognosis.
[2016-09-24] MEDS: VITAMIN D 1,000 INTERNATIONAL UNITS TABLET PO SCH (20:39)
[2016-09-24] MEDS: NITROFURANTOIN (MACROBID) 100 MG CAP PO SCH (20:39)
--- NOTE | 2016-09-24 21:12 | CR ---
DATE OF CONSULTATION: 09/24/2016 Asked to consult by Dr. Leyva for evaluation of urinary tract infection with culture positive for Escherichia (E) coli. HISTORY OF PRESENT ILLNESS: Sammi is an 81-year-old female from [facility] who was brought into the hospital on 09/22/2016, with complaint of slurred speech, right facial droop and right-sided weakness. The patient had a fever of 101.3, blood cultures were drawn with two sets were negative. Urine culture had more than 100,000 (E) coli. She was treated with IV vancomycin and meropenem with resolution of fever within 24 hours. Some of her symptoms have improved with facial droop but the patient still slurs her speech. She seems to have recovered some of her strength. The patient at baseline is nonambulatory, very poor historian with dementia. She is wheelchair bound. She walks some with a walker with assistance. She recently also had a fall. In the custodial she had a fever of 104. She had no chest pain, shortness of breath or discomfort. ALLERGIES: The patient has an allergy to BENZOCAINE, CEPHALOSPORIN, CIPROFLOXACIN, MISOPROSTOL, LATEX, PENICILLIN, SULFA DRUGS, orange, peppermint, MORPHINE, ASPIRIN, AMBIEN, HYDROCODONE. PAST MEDICAL HISTORY: Superior and inferior pubic rami fractures from fall, obstructive sleep apnea, on CPAP, history of DVT and atrial fibrillation on anticoagulation, anemia, rheumatoid arthritis, dyslipidemia, hypertension, gastroesophageal reflux disease, iron deficiency anemia, vitamin B12 deficiency, Alzheimer's dementia, recurrent urinary tract infection, mostly with (E) coli but in 2013 she had a previous history of MRSA UTI, L3 compression fracture. PAST SURGICAL HISTORY: Pacemaker placement. SOCIAL HISTORY: She lives at [facility]. She does not smoke or drink. She is a retired flower shop keeper. She has a DO NOT RESUSCITATE/DO NOT INTUBATE. REVIEW OF SYSTEMS: Could not be obtained due to patient slurring speech and being lethargic. She does deny any abdominal pain, nausea, vomiting or urinary symptoms but I am not sure about that history either. MEDICATIONS: - artificial tears both eyes four times a day - potassium 40 mEq by mouth three times a day - meropenem 1 gram IV every 12 hours - vitamin D 2000 units every evening - Nuedexta 20/10 one by mouth twice a day - Xarelto 20 mg by mouth daily - vancomycin 1 gram IV every 18 hours - milk of magnesia as needed - atenolol 50 mg by mouth twice a day - ferrous sulfate 325 mg by mouth daily - prednisone 5 mg by mouth daily - primidone 100 mg by mouth daily - Senokot one tablet by mouth twice a day Heart: Normal S1, S2. No murmurs, rubs or gallops appreciated. Lungs are clear. No wheezes, rales or rhonchi. Abdomen: Soft, nontender. No hepatosplenomegaly. Extremities: No edema. The patient does not follow commands for neurologic exam, she has her eyes closed, opens her eyes when I ask her questions and seems irritated. Neurologic exam: Moves all extremities. Left knee has a large scar which is well-healed. LABORATORY DATA: White count on admission was 8.2, currently is 5.8, hemoglobin 9.5, hematocrit 29.5, platelets 141. Sodium 139, potassium 3.2, chloride 106, bicarbonate 26, BUN 22, creatinine 0.5, glucose 81, calcium 9.5, magnesium 1.5, CPK 20, TSH 0.876, free T4 2.9. Urinalysis had trace leukocyte esterase, many white cells. Urine culture had more than 100,000 (E) coli resistant only to Bactrim, Levaquin, ESBL negative. IMAGING STUDIES: Head CT showed age-related atrophy and microvascular ischemic changes. No acute pathology. Chest CT done on 09/23/2016, shows cardiomegaly with small to moderate pericardial effusion compatible with congestive heart failure and pulmonary edema. Echocardiogram done by Dr. Arthur shows mild concentric LVH, grade 3-4 diastolic dysfunction, severe left atrial dilatation, moderate elevation of right ventricular systolic pressure, mild tricuspid regurgitation, moderate mitral annular calcification and mild mitral regurgitation, moderate aortic valve sclerosis but no stenosis. IMPRESSION: This is an 81-year-old female who was admitted with what sounds to me like stroke-like symptoms/transient ischemic attack (TIA) with slurred speech, right facial droop and right-sided weakness. She also had a fever of 104 at the custodial with evidence of urinary tract infection. The patient did not have a white count or positive blood cultures. She was started on broad-spectrum antibiotics including meropenem and vancomycin. At this point her fever has resolved, her white count is normal. The patient could be de-escalated to Macrobid. PLAN: 1. Discontinue IV vancomycin. 2. Discontinue IV meropenem. 3. Start Macrobid 100 mg by mouth twice a day. The patient has normal kidney function. The patient could be treated with 10 days of Macrobid. She does not have ESBL UTI.
[2016-09-25 04:00] VITALS: BP 135/64
[2016-09-25] MEDS: SLF 3 ML SYR IV SCH ×3 (04:37→22:00)
[2016-09-25 06:00] LABS: MEAN CORPUSCULAR HEMOGLOBIN 27.6 pg (27.0-33.0); MEAN CORPUSCULAR HGB CONC 31.8 g/dl (32.0-36.5); MEAN CORPUSCULAR VOLUME 86.7 fl (80.0-96.0); RED CELL DISTRIBUTION WIDTH 14.8 % (11.5-14.5); WHITE BLOOD COUNT 5.6 K/mm3 (4.0-10.0)
[2016-09-25 06:09] LABS: ANION GAP 5 MEQ/L (8-16); BLOOD UREA NITROGEN 19 MG/DL (7-18); CALCIUM LEVEL 9.7 MG/DL (8.8-10.2); CARBON DIOXIDE LEVEL 25 MEQ/L (21-32); CHLORIDE LEVEL 110 MEQ/L (98-107); CREATININE FOR GFR 0.56 MG/DL (0.55-1.02); GLOMERULAR FILTRATION RATE > 60.0 (>32); GLUCOSE, FASTING 103 MG/DL (83-110); MAGNESIUM LEVEL 1.9 MG/DL (1.8-2.4); POTASSIUM SERUM 4.8 MEQ/L (3.5-5.1); SODIUM LEVEL 140 MEQ/L (136-145)
[2016-09-25 08:00] VITALS: BP 127/60
[2016-09-25] MEDS: PRIMIDONE 50 MG TAB PO SCH (09:25)
[2016-09-25] MEDS: ATENOLOL 50 MG TAB PO SCH ×2 (09:25→20:45)
[2016-09-25] MEDS: NITROFURANTOIN (MACROBID) 100 MG CAP PO SCH ×2 (09:26→20:45)
[2016-09-25] MEDS: POLYVINYL ALCOHOL OPHTH SOLN 15 ML(LIQUITEARS) OU SCH ×4 (09:26→20:45)
[2016-09-25] MEDS: ACETAMINOPHEN 500 MG TAB PO SCH ×3 (09:26→20:44)
[2016-09-25] MEDS: FERROUS SULFATE 325MG TAB PO SCH (09:27)
[2016-09-25] MEDS: predniSONE 5 MG TAB PO SCH (09:27)
[2016-09-25] MEDS ORDERED: NITR100C2 PO (09:48)
[2016-09-25 14:00] VITALS: BP 146/72
--- NOTE | 2016-09-25 15:46 | IPN ---
DATE: 09/25/2016 Patient seen and examined at the bedside. Chart has been reviewed. 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 Continues to have a facial droop. Afebrile overnight. No chills. No chest pain, pressure, tightness, palpitations, lightheadedness. Temperature 97.8, pulse 87, regular, respiratory rate 22, blood pressure 127/60, 96% on 2 liters nasal cannula. Generally, patient is awake, alert, oriented to person, place, and time, is slow to respond. She has distant breath sounds. No wheezing or rales. Heart S1, S2, sinus. Abdomen soft, nontender, nondistended. Positive bowel sounds. Extremities no pitting edema. Neurologically, awake, alert, oriented. Right-sided flattening of the nasolabial fold. Tongue is midline. Pupils round and reactive. Extraocular muscles are intact. Motor strength 5/5 upper and lower extremities on the left. Right upper and lower extremities is 3/5. LABORATORY DATA: CBC and metabolic panel have been reviewed. ASSESSMENT AND PLAN: This is an 81-year-old female with history of atrial fibrillation, on chronic Xarelto, deep venous thrombosis (DVT) on anticoagulation, Alzheimer's dementia, pacer, tachybrady, chronic kidney disease stage III, chronic obstructive pulmonary disease (COPD), obstructive sleep apnea , constipation, hypertension, reflux, rheumatoid arthritis, was sent from the senior living with fevers and right-sided weakness, slurred speech, flattening of her right nasolabial fold. CURRENT ISSUES: 1. Slurred speech, right-sided weakness. CT times two have been negative for acute CVA. Continue on Xarelto. Per Dr. Nye, neurologist, given mild thrombocytopenia he does not recommend escalating antiplatelet agent, continue with Xarelto for now. Echo is appreciated. Physical therapy (PT), occupational therapy (OT), speech and swallow evaluation. Her baseline is Cathy lift and bed bound. Cardiac enzymes are negative. Neurologic checks. Unable to perform MRI due to pacer. 2. Fever, sepsis, due to Escherichia (E) coli urinary tract infection (UTI). Status post IV fluids. Currently on nitrofurantoin for a total of 10 days. 3. Atrial fibrillation, on telemetry. Rate controlled, currently regular, sinus rhythm, on Xarelto with pacemaker. 4. Congestive heart failure (CHF). Lasix was initially given. Currently intake and output is being monitored. 5. Hypokalemia, supplemented. 6. Deep venous thrombosis (DVT), on Xarelto. 7. Chronic kidney disease, at baseline. 8. Chronic obstructive pulmonary disease (COPD). No wheeze. 9. Obstructive sleep apnea (AC). Obstructive sleep apnea protocol. Resume continuous positive airway pressure (CPAP) at nursing facility. 10. Constipation. Bowel regimen. 11. Rheumatoid arthritis, on steroids, home medications. 12. Reflux, on proton pump inhibitor (PPI). 13. Hypertension, on beta blockade. 14. Deep venous thrombosis (DVT) prophylaxis, on Xarelto. 15. Patient is DO NOT RESUSCITATE/DO NOT INTUBATE. DISPOSITION: May discharge home if stable overnight, may discharge in the morning. MTDD
[2016-09-25] MEDS: RIVAROXABAN 20 MG TAB (XARELTO) PO SCH (17:04)
--- NOTE | 2016-09-25 17:59 | IPN ---
DATE: 09/25/2016 Sammi was transferred to [address] [place] [address]. She seems to be doing better. She denies any nausea, vomiting, diarrhea, abdominal pain, fever, or chills. She continues to have diarrhea. She denies any urinary symptoms. She is incontinent of stools. She is wondering why she is in the hospital. I explained to her that she might have had a stroke. PHYSICAL EXAMINATION: Temperature is 97.8, pulse 87, respirations 22, blood pressure 127/60, oxygen saturation 96% on 2 liters nasal cannula. She has been afebrile since September 23, 48 hours. HEART: Normal S1, S2, irregular with a holosystolic murmur, 2/6, best heard at the left upper sternal border. LUNGS: Clear. No wheezes, rales, or rhonchi. ABDOMEN: Soft, nontender. GENITOURINARY: Incontinent of stools, in a pull-up. EXTREMITIES: No edema. NEUROLOGIC EXAMINATION: Resting tremors. Right upper extremity weaker than left and a slight facial droop. Urine culture positive for Escherichia (E) coli resistant to Bactrim and Levaquin. IMPRESSION: 1. Enterococcus (E) coli urinary tract infection with fever, resolved. Currently on Macrobid to finish 10-day course. 2. Diarrhea, most likely related to laxatives that have been discontinued. 3. Right-sided weakness, probably related to a stroke. Seems to have improved. PLAN: Continue Macrobid for total of 10 days. Infectious disease signing off.
[2016-09-25] MEDS: VITAMIN D 1,000 INTERNATIONAL UNITS TABLET PO SCH (20:44)
[2016-09-25 22:00] VITALS: BP 142/92
[2016-09-26] VITALS (10 sets, daily range): BP systolic 104–154; BP diastolic 57–95; O2SAT 96
[2016-09-26] MEDS: SLF 3 ML SYR IV SCH ×3 (05:45→22:00)
[2016-09-26 06:51] LABS: MEAN CORPUSCULAR HEMOGLOBIN 26.9 pg (27.0-33.0); MEAN CORPUSCULAR HGB CONC 30.5 g/dl (32.0-36.5); MEAN CORPUSCULAR VOLUME 88.1 fl (80.0-96.0); RED CELL DISTRIBUTION WIDTH 14.9 % (11.5-14.5); WHITE BLOOD COUNT 7.9 K/mm3 (4.0-10.0)
[2016-09-26 07:05] LABS: ANION GAP 9 MEQ/L (8-16); BLOOD UREA NITROGEN 20 MG/DL (7-18); CALCIUM LEVEL 9.9 MG/DL (8.8-10.2); CARBON DIOXIDE LEVEL 22 MEQ/L (21-32); CHLORIDE LEVEL 107 MEQ/L (98-107); GLOMERULAR FILTRATION RATE > 60.0 (>32); GLUCOSE, FASTING 185 MG/DL (83-110); SODIUM LEVEL 138 MEQ/L (136-145)
[2016-09-26 07:07] LABS: POTASSIUM SERUM 5.2 MEQ/L (3.5-5.1)
[2016-09-26] MEDS: NITROFURANTOIN (MACROBID) 100 MG CAP PO SCH ×2 (08:20→20:45)
[2016-09-26] MEDS: PRIMIDONE 50 MG TAB PO SCH (08:20)
[2016-09-26] MEDS: ACETAMINOPHEN 500 MG TAB PO SCH ×3 (08:20→20:45)
[2016-09-26] MEDS: ATENOLOL 50 MG TAB PO SCH ×2 (08:20→20:45)
[2016-09-26] MEDS: predniSONE 5 MG TAB PO SCH (08:21)
[2016-09-26] MEDS: POLYVINYL ALCOHOL OPHTH SOLN 15 ML(LIQUITEARS) OU SCH ×4 (08:21→21:00)
[2016-09-26] MEDS: FERROUS SULFATE 325MG TAB PO SCH (08:21)
[2016-09-26] MEDS ORDERED: FUROSEMIDE 40 MG/4 ML VIAL (J1940) IV ONE ×2 (08:45→14:00)
--- NOTE | 2016-09-26 09:21 | REP ---
PORTABLE CHEST: AP portable view of the chest is performed and compared to prior study of 09/23/2016 and other prior exams. Mild chronic interstitial prominence is stable. No new infiltrates are seen. There is cardiomegaly. Mediastinal silhouette is unchanged. Left dual lead pacemaker is again noted. IMPRESSION: Cardiomegaly and chronic changes without evidence of acute infiltrate. Signed by Han Simmons MD 09/26/2016 05:35 P
[2016-09-26] MEDS: ROSUVASTATIN 10 MG TAB (CRESTOR) PO SCH (12:24)
[2016-09-26] MEDS: RIVAROXABAN 20 MG TAB (XARELTO) PO SCH (16:37)
--- NOTE | 2016-09-26 16:48 | REP ---
CT HEAD WITHOUT CONTRAST: HISTORY: Dysarthria. COMPARISON: 09/23/2016 Areas of decreased attentuation are present in the basal ganglia and right thalamus. These represent old lacunar infarctions. Areas of decreased attenuation are present in the periventricular and subcortical white matter. This represents small vessel ischemic disease. There is no intraparenchymal hemorrhage, mass, or midline shift. The ventricular system and cortical sulci are dilated consistent with moderate volume loss. There is no extracerebral collection. The visualized sinuses are clear. Impression:1. 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 Small vessel ischemic disease.3. Moderate volume loss. Signed by Marko Parsons MD 09/26/2016 04:53 P
[2016-09-26 18:30] LABS: ANION GAP 8 MEQ/L (8-16); BLOOD UREA NITROGEN 23 MG/DL (7-18); CARBON DIOXIDE LEVEL 24 MEQ/L (21-32); CHLORIDE LEVEL 107 MEQ/L (98-107); GLOMERULAR FILTRATION RATE > 60.0 (>32); GLUCOSE, FASTING 193 MG/DL (83-110); MAGNESIUM LEVEL 1.8 MG/DL (1.8-2.4); POTASSIUM SERUM 4.4 MEQ/L (3.5-5.1); SODIUM LEVEL 139 MEQ/L (136-145)
[2016-09-26] MEDS ORDERED: FUROSEMIDE 100 MG/10 ML VIAL (J1940) As Ordered ONE (19:47)
[2016-09-26 19:56] LABS: ABG BASE EXCESS 1.7 (-2.0-2.0); ABG HCO3 21.9 MEQ/L (22.0-26.0); ABG PARTIAL PRESSURE CO2 22.7 mmHg (35.0-45.0); ABG PARTIAL PRESSURE O2 124.9 mmHg (75.0-100.0); ABG TOTAL CO2 22.6 MEQ/L (23.0-31.0)
[2016-09-26 19:57] LABS: ABG pH (ARTERIAL) 7.603 UNITS (7.350-7.450)
[2016-09-26] MEDS ORDERED: FUROSEMIDE 100 MG/10 ML VIAL (J1940) IV ONE (20:00)
[2016-09-26] MEDS ORDERED: ASPIRIN 300 MG SUPP PR ONE (20:45)
[2016-09-26] MEDS: VITAMIN D 1,000 INTERNATIONAL UNITS TABLET PO SCH (20:46)
--- NOTE | 2016-09-26 21:30 | REPUSA ---
CLINICAL HISTORY: SOB. COMMENTS: There is no evidence of active pleural or pulmonary parenchymal abnormality. Dual-lead pacemaker is noted in the left chest wall. The cardiac silhouette is enlarged. The mediastinum and pulmonary vessels appear normal. Aorta is tor tuous. Degenerative changes are noted in the thoracic spine. IMPRESSION: No evidence of acute pulmonary pathology. Thank you for your kind referral of this patient.
[2016-09-26 22:50] LABS: ABG BASE EXCESS 3.5 (-2.0-2.0); ABG PARTIAL PRESSURE CO2 37.1 mmHg (35.0-45.0); ABG PARTIAL PRESSURE O2 126.2 mmHg (75.0-100.0); ABG STANDARD HCO3 27.6 MEQ/L (22.0-26.0); ABG TOTAL CO2 28.1 MEQ/L (23.0-31.0)
[2016-09-27] VITALS (10 sets, daily range): BP systolic 104–119; BP diastolic 51–86; O2SAT 97–98
--- NOTE | 2016-09-27 01:03 | IPN ---
EVENT NOTE: DATE OF THE EVENT: 09/26/2016 Called by nursing staff around 7:30 p.m. that patient has been having increased lethargy since 5:00 p.m. in the afternoon. Furthermore, patient has been having apneic episodes on obstructive sleep apnea (AC) monitor. Patient was seen and examined. Earlier in the day, CT scan of the head has already been done, showing old chronic changes, no acute infarct. An x-ray also has been appreciated with very questionable pulmonary vascular congestion. Arterial blood gas (ABG) has been ordered. The patient has been seen and examined. Patient is lethargic, arousable to noxious stimuli, sternal rubs, withdraws from pain of all extremities. Pupils bilaterally equal and reactive, but does have alternating periods of apnea with periods of rapid breathing into the 30s. Patient not following much command. For concerns of congestive heart failure (CHF) given patient had a brain natriuretic peptide of 2660, Lasix has been given. ALLERGIES: Patient has allergy to ASPIRIN. PULMONARY: No rhonchi bilaterally. CARDIAC: Irregular, S1, S2, non-tachycardia. ABDOMEN: Soft, nontender. EXTREMITIES: Trace edema bilateral lower extremities. Called family to find out additional information. Aware that patient has history of obstructive sleep apnea but about 3 days ago, as per nursing staff, attempt to call the detention for patient's continuous positive airway pressure (CPAP), was informed that patient does not use CPAP at the detention. Subsequently, spoken to family. Family reported that patient has not been using CPAP at the detention but patient does have a CPAP in their house. Further clarified goals of care. Informed family that the patient has DO NOT RESUSCITATE/DO NOT INTUBATE on Medical Orders for Life-Sustaining Treatment (MOLST) form. Is agreeable that patient does not want to be intubated. Given patient had previously used CPAP, will place the patient on CPAP for a trial as per family and, subsequently, patient is transferred to intensive care unit (ICU) for CPAP. ABG was done, showing respiratory alkalosis. Case was discussed with pulmonary critical care physician, Dr. Ventura. It was thought that potentially patient could have a stroke causing periods of apneic episodes, but patient on physical exam is not having any lateralizing signs. Repeat ABG has been appreciated showing improvement of respiratory alkalosis. Echocardiogram has been done during this admission. Tentatively, patient was made nothing by mouth pending further speech and swallow during the daytime. Case was discussed with neurology, Dr. Mena. Patient has already been on Xarelto and, as per Dr. Mena, given patient has not shown any concrete evidence of stroke, would not recommend changing current management. Furthermore, patient has allergy to aspirin; therefore, will not give rectal aspirin. Will repeat a CT scan during the daytime. If patient does not tolerate oral during the daytime, could potentially switch to Lovenox or heparin drip, but currently will not do any change of management given no concrete evidence of stroke as per Dr. Mena. Will continue to assess. Patient currently is able to withdraw from pain from all four extremities. Seems to be a bit more alert on CPAP. Will continue to monitor overnight. Repeat CT scans in the morning. Unable to perform MRI given patient has a pacemaker. Pacemaker was interrogated during this hospital course. Case discussed with Dr. Ventura and Dr. Mena. Family is informed of the seriousness of the patient's condition. Goals of care have been discussed with the family, including comfort measures. Family would like to keep the current course of treatment and will further decide on comfort measures at a later date. Case discussed with the brother of the patient, who is also the patient's health care proxy. His name is Jules Mai, phone number [phone]. Edited: [facility] 09/27/2016 [id number]
[2016-09-27 04:53] LABS: MEAN CORPUSCULAR HEMOGLOBIN 26.9 pg (27.0-33.0); MEAN CORPUSCULAR HGB CONC 31.6 g/dl (32.0-36.5); MEAN CORPUSCULAR VOLUME 85.2 fl (80.0-96.0); RED CELL DISTRIBUTION WIDTH 14.7 % (11.5-14.5); WHITE BLOOD COUNT 6.1 K/mm3 (4.0-10.0)
[2016-09-27 05:13] LABS: ANION GAP 6 MEQ/L (8-16); BLOOD UREA NITROGEN 25 MG/DL (7-18); CALCIUM LEVEL 10.3 MG/DL (8.8-10.2); CARBON DIOXIDE LEVEL 28 MEQ/L (21-32); CHLORIDE LEVEL 105 MEQ/L (98-107); CREATININE FOR GFR 0.85 MG/DL (0.55-1.02); GLOMERULAR FILTRATION RATE > 60.0 (>32); GLUCOSE, FASTING 136 MG/DL (83-110); MAGNESIUM LEVEL 1.6 MG/DL (1.8-2.4); POTASSIUM SERUM 3.9 MEQ/L (3.5-5.1); SODIUM LEVEL 139 MEQ/L (136-145)
[2016-09-27 05:27] LABS: ABG BASE EXCESS 5.3 (-2.0-2.0); ABG HCO3 28.1 MEQ/L (22.0-26.0); ABG PARTIAL PRESSURE CO2 34.8 mmHg (35.0-45.0); ABG PARTIAL PRESSURE O2 141.3 mmHg (75.0-100.0); ABG STANDARD HCO3 29.3 MEQ/L (22.0-26.0); ABG TOTAL CO2 29.2 MEQ/L (23.0-31.0); ABG pH (ARTERIAL) 7.525 UNITS (7.350-7.450)
[2016-09-27] MEDS: MAG SULF 1GM/100ML (MAG RUN) 1 GM in APPROPRIATE DILUENT 1 EA IV SCH ×2 (07:39→09:22)
[2016-09-27] MEDS: SLF 3 ML SYR IV SCH ×3 (07:40→20:10)
[2016-09-27] MEDS ORDERED: DIGOXIN INJ 0.5 MG/2 ML AMP (J1160) IV STA (08:54)
[2016-09-27] MEDS ORDERED: ATENOLOL 25 MG TAB PO ONE (09:00)
[2016-09-27] MEDS ORDERED: METOPROLOL 5 MG/5 ML VIAL IV STA (09:07)
[2016-09-27] MEDS ORDERED: AMIODARONE HCL 150 MG in APPROPRIATE DILUENT 1 EA IV STA (09:07)
[2016-09-27] MEDS: ROSUVASTATIN 10 MG TAB (CRESTOR) PO SCH (09:23)
[2016-09-27] MEDS: ACETAMINOPHEN 500 MG TAB PO SCH ×3 (09:23→20:10)
[2016-09-27] MEDS: predniSONE 5 MG TAB PO SCH (09:23)
[2016-09-27] MEDS: PRIMIDONE 50 MG TAB PO SCH (09:23)
[2016-09-27] MEDS: FERROUS SULFATE 325MG TAB PO SCH (09:23)
[2016-09-27] MEDS: NITROFURANTOIN (MACROBID) 100 MG CAP PO SCH ×2 (09:23→20:10)
[2016-09-27] MEDS: POLYVINYL ALCOHOL OPHTH SOLN 15 ML(LIQUITEARS) OU SCH ×4 (09:24→20:10)
[2016-09-27] MEDS ORDERED: ISOVUE-370 76% 100ML VIAL (Q9967) As Ordered ONE (09:36)
--- NOTE | 2016-09-27 10:17 | REP ---
Chest x-ray: Single view. History: Shortness of breath. Comparison study September 26, 2016. Findings: Oxygen delivery tubing and EKG monitoring electrodes are seen. A bipolar pacemaker remains in the right heart via the left side. Mild cardiac enlargement is again seen unchanged. The aorta is somewhat tortuous. The lungs are symmetrically aerated and free of infiltrate. Pleural angles are sharp. Pulmonary vasculature is not increased. Impression: Mildly enlarged heart with pacemaker. Otherwise no acute disease seen. Signed by Miguel Angel Marie MD 09/27/2016 10:20 A
--- NOTE | 2016-09-27 11:10 | REP ---
CT ANGIO HEAD: HISTORY: Infarction. CONTRAST: Isovue 370, 75 mL. The examination is very limited. There is no definite aneurysm or arteriovenous malformation. Calcified atherosclerotic plaques are present in the horizontal and petrous and cavernous internal carotid arteries. These produce at least mild stenosis. Major intracranial vessels are patent. There is origin of the right posterior cerebral artery. The vertebral arteries are equal in size. IMPRESSION: 1. Very limited examination demonstrating no definite aneurysm or arteriovenous malformation. 2. Atherosclerotic disease as described above. Signed by Marko Parsons MD 09/27/2016 11:29 A
--- NOTE | 2016-09-27 15:24 | ECGEPIP ---
Stationary ECG Study [facility] Test Date: 2016-09-26 Pat Name: INNA BRAGG Department: Room: V6632-41 Gender: F Heel Cutter: : [id number] Requested By: VICKI Zhu Order Number: [id number] Reading MD: Lukasz Arthur Measurements Intervals [place] Rate: 77 P: 83 NH: 208 QRS: -58 QRSD: 105 T: -83 QT: 407 QTc: 462 Interpretive Statements ELECTRONIC ATRIAL PACEMAKER PATTERN CONSISTENT WITH PULMONARY DISEASE LEFT ANTERIOR FASCICULAR BLOCK MODERATE T-WAVE ABNORMALITY, nonspecific MODERATE T-WAVE ABNORMALITY, Nonspecific Electronically Signed On 09-27-2016 15:24:36 EDT by Lukasz Arthur
[2016-09-27] MEDS ORDERED: AMIODARONE 150MG/3ML INJ (J0282) IVP STA (15:48)
[2016-09-27] MEDS ORDERED: AMIODARONE HCL 150 MG in APPROPRIATE DILUENT 1 EA IV ONE (16:00)
[2016-09-27] MEDS ORDERED: SODIUM CHLORIDE 0.9% 1000 ML IV ONE (16:45)
[2016-09-27] MEDS: RIVAROXABAN 20 MG TAB (XARELTO) PO SCH (17:07)
--- NOTE | 2016-09-27 17:07 | CR ---
DATE OF CONSULTATION: 09/27/2016 Time patient was seen was 10:30. CONSULTING PHYSICIAN: Dr. Leyva. DESIGN AGENT: Dr. Ventura REASON FOR CONSULTATION: Respiratory alkalemia. HISTORY OF PRESENT ILLNESS: 81-year-old female with past medical history obstructive sleep apnea on CPAP, history of deep vein thrombosis (DVT) on anticoagulation, paroxysmal atrial fibrillation, anticoagulation, anemia, rheumatoid arthritis, dyslipidemia, hypertension, gastroesophageal reflux disease (GERD), iron deficiency, vitamin B12 deficiency, Alzheimer's dementia, who was presented to the hospital 5 days ago due to slurred speech, right sided facial droop and right sided weakness and was found to have a urinary tract infection (UTI) and fever. Yesterday afternoon, the patient had increased lethargy and was having apneic episodes. ABG was drawn and was found that the patient had a pH of 7.6, PCO2 of 22.7, PO2 of 124.9, oxygen saturation was 99%. At this point, Dr. Leyva contacted Dr. Ventura for consultation. The patient was intermittently responsive to stimulation with voice and pain. The patient did state that she was feeling okay. Denies any chest pain, trouble breathing, abdominal pain. However, the patient was in and out throughout the examination. ALLERGIES: The patient is allergic to ASPIRIN, BENZOCAINE, CEPHALOSPORIN, CIPROFLOXACIN, MISOPROSTOL, PENICILLIN and CROSS-REACTORS, SALICYLATE, SULFA DRUGS, DIGOXIN, ORANGE, PEPPERMINT FLAVOR, MORPHINE, AMBIEN, HYDROCODONE. PAST MEDICAL HISTORY: Includes: 1. Obstructive sleep apnea on continuous positive airway pressure (CPAP). 2. History of deep vein thrombosis (DVT) on anticoagulation. 3. Paroxysmal atrial fibrillation, on anticoagulation. 4. Anemia. 5. Rheumatoid arthritis. 6. Dyslipidemia. 7. Hypertension. 8. Gastroesophageal reflux disease (GERD). PAST SURGICAL HISTORY: 1. Dual chamber pacemaker placement. SOCIAL HISTORY: The patient lives in a [facility]. Does not smoke or drink. 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 She is a DO NOT RESUSCITATE, DO NOT INTUBATE. Does have a Medical Orders for Life Sustaining Treatment (MOLST) form filled out. REVIEW OF SYSTEMS: Unable to obtain due to patient's mental status. However, the patient does deny any chest pain, any abdominal pain, nausea, vomiting. HOME MEDICATIONS: - Tylenol 1000 mg one tablet by mouth three times a day - Abilify 2 mg one tablet by mouth at night - artificial tears one drop to each eye four times a day - atenolol 50 mg one tablet by mouth twice a day - Dulcolax 10 mg per rectum daily as needed - vitamin D3 2000 units by mouth at night - ferrous sulfate 325 mg one by mouth daily - isosorbide mononitrate extended release 60 mg one tablet by mouth in the morning - sulfonamide 20 mg one tablet by mouth in the morning - milk of magnesia 30 mL by mouth daily as needed - nitrofurantoin 100 mg one tablet by mouth twice a day for 9 days - nitroglycerin 0.4 mg sublingual every 5 minutes as needed - Nuedexta 10 mg one tablet by mouth twice a day - oxycodone 2.5 mg one tablet by mouth twice a day as needed - prednisone 5 mg one tablet by mouth daily - primidone 100 mg one tablet by mouth daily - Xarelto 20 mg one tablet by mouth daily - enema one per rectum daily as needed PHYSICAL EXAMINATION: VITAL SIGNS: Temperature 98.2, pulse 75 and irregular, respirations 24, blood pressure 107/51, oxygen saturation 98% on 3 liters of nasal cannula. GENERAL: The patient is an elderly female who was drowsy and was sitting up at a 45 degree angle in her intensive care unit (ICU) bed. She was able to follow simple commands; however, was in and out throughout the examination. HEENT: Normocephalic, atraumatic. Extraocular motors intact. Mucosa moist. NECK: Supple. No neck lymphadenopathy. Pupils were equal, round and reactive to light bilaterally. LUNGS: Clear to auscultation bilaterally. No wheeze, rhonchi, or crackles. Normal I:E. No accessory muscle usage or retractions. CARDIOVASCULAR: Irregularly irregular. There was a 2/6 systolic heart murmur and also a diastolic heart murmur. ABDOMEN: Positive bowel sounds. Soft, nontender, nondistended. No peritoneal signs. No ecchymosis. EXTREMITIES: No edema, clubbing, or cyanosis. SKIN: Warm and dry. NEUROLOGIC: Cranial nerves could not be fully assessed due to patient was only minimally responsive. LABORATORY DATA: WBC 6.1, hemoglobin 11.3, hematocrit 35.8, platelet count of 252 and MCV of 85.2. Sodium 139, potassium 3.9, chloride 105, bicarbonate 28, BUN 25, creatinine 0.58 , GFR greater than 60, glucose 136, calcium 10.3, magnesium was low at 1.6. CK 27 , CK-MB 22.2, troponin was 0.95 and before it was 1.24. The patient's BNP yesterday was 2660. The patient's ABG last night at 7:46 showed a pH of 7.6, PCO2 of 22.7, PO2 of 124. This morning at 5:00 a.m. showed a pH of 7.5, PCO2 of 24.8, PO2 of 141. There are no new cultures. The patient did have a portable chest x-ray this morning that did not show any acute processes. CT angiography of the head this morning, preliminary result shows very limited examination demonstrating no definite aneurysm or AV malformation, atherosclerosis disease as described above. ASSESSMENT AND PLAN: 81-year-old female with a past medical history of paroxysmal atrial fibrillation, superior and inferior pubic ramus fracture, obstructive sleep apnea on CPAP, follows with Dr. Rodgers, history of deep vein thrombosis (DVT) and atrial fibrillation on Xarelto, rheumatoid arthritis, recurrent urinary tract infection (UTI), who presented with UTI and altered mental status. 1. Found to be in acute respiratory alkalosis last night due to hyperventilation. Dr. Ventura has spoken with Dr. Leyva overnight and it was felt that the patient's hyperventilation and respiratory alkalemia is likely secondary to ischemic event in the brainstem. Other differentials less likely, including heart failure, acute coronary syndrome, infection, PE, or other. 2. History of obstructive sleep apnea and was on BiPAP at home. Looking back at the patient's polysomnogram back in 2010, the patient had a pressure setting of 13/7; however, at that point, the patient had a weight of 99.5 kg and now the patient's weight is 68 kg with roughly 30 kg of weight loss. At this point, it is not clear if the patient's obstructive sleep apnea still exists. 3. Witnessed apnea. Differential would need to include central apnea in addition to obstructive apnea. Again, it is not known if she still has AC. ATTENDING: I,, Dr. Delonte Ventura, independently performed a history and physical examination and agree with the documentation. I discussed the assessment and recommendations with the resident and agree with the above documentation. BEATRIZ
[2016-09-27] MEDS ORDERED: NS 1,000 ML IV SCH (18:30)
[2016-09-27] MEDS: VITAMIN D 1,000 INTERNATIONAL UNITS TABLET PO SCH (20:10)
--- NOTE | 2016-09-27 21:04 | IPN ---
DATE: 09/26/2016 SUBJECTIVE: The patient seen and examined at the bedside, complaining of some shortness of breath. No chest pain, pressure, tightness, nausea or vomiting. The patient had been having soft stools. Bowel regimen has been discontinued. Three bowel movements today. OBJECTIVE: VITAL SIGNS: Temperature 96.6, pulse 75, respiratory rate 18, blood pressure 154/71, 99% on room air. GENERAL: Awake, alert, and oriented to person, place and time. Garbled speech with facial asymmetry. Tongue is midline. Right-sided flattening of the nasolabial fold. Pupils round, reactive. Motor function 5/5 on the left. Right upper and lower extremity 3/5. LABORATORY DATA: White count is 7.9, hemoglobin 10, hematocrit 35, platelet count 257. BNP is 2660. Potassium 5.2. Troponin 0.9. Relative index 6.47. MICROBIOLOGY: Urine culture with Escherichia (E.) coli. Laboratory, microbiology, and imaging studies have been reviewed. ASSESSMENT AND PLAN: This is an 81-year-old female with history of atrial fibrillation on chronic Xarelto, deep venous thrombosis (DVT) on anticoagulation, Alzheimer's dementia, pacer for tachy-emili syndrome, chronic kidney disease stage III, chronic obstructive pulmonary disease (COPD), obstructive sleep apnea, constipation, hypertension, reflux, rheumatoid arthritis, was sent from the half-way with fevers, right-sided weakness, slurred speech, flattening of the right nasolabial fold. CURRENT ISSUES: 1. Slurred speech, right-sided weakness. CT of the brain was negative times two for acute CVA. Unable to obtain MRI due to pacemaker. Currently on Xarelto. Per Dr. Nye, given mild thrombocytopenia, does not recommend escalating antiplatelet therapy. Currently on a puree diet. Echocardiogram is appreciated. Baseline is Cathy-Lift and bed bound. The patient's discharge has been postponed due to shortness of breath and congestive heart failure (CHF). 2. Congestive heart failure with preserved ejection fraction. Currently on intravenous (IV) Lasix. Monitor urine output. Strict intake and output, daily weights, and fluid restriction. 3. E. coli urinary tract infection (UTI). Currently on nitrofurantoin to complete a 10-day course. 4. Atrial fibrillation with pacemaker. Chronic Xarelto. Sinus rhythm currently. 5. DVT prophylaxis on Xarelto. 6. History of chronic kidney disease at baseline. 7. COPD. No wheezing. 8. Obstructive sleep apnea per protocol. Resume continuous positive airway pressure (CPAP) at nursing facility. 9. Constipation on bowel regimen. 10. Rheumatoid arthritis on steroids. 11. Hypertension on beta blockade. 12. Reflux on proton pump inhibitor (PPI). 13. Loose bowel movements, off bowel regimen. Will continue to monitor.
--- NOTE | 2016-09-27 22:39 | IPN ---
DATE: 09/27/2016 The patient is being examined at bedside. Chart has been reviewed. Overnight, the patient had been transferred to the intensive care unit (ICU) due to apneic episodes. She was found to have 2 to 3 seconds of apnea, most likely related to a central nervous system issue. She was found to be severely alkalotic and was placed on CPAP to permit time for diuresis. She did receive two doses of IV Lasix due to her elevated basic metabolic panel (BMP) despite negative findings on chest x-ray. She appeared to be fluid overloaded. This morning the patient remains with CPAP requesting for her mask to be removed. Brother at the bedside, had made the decision yesterday to continue with full active support due to concern of decompensation and deterioration leading to if the patient is unassisted until she is more awake to make a final decision. This morning when I had seen her she complains of discomfort from the CPAP machine and was requesting the mask to be removed. However, the patient's brother is still awaiting the rest of the family to spend time with her. Dr. Ventura has been consulted for CPAP management, as well as consultation for possible etiology of her acute issues for the severe respiratory alkalosis. It was felt that the patient's brainstem may be affected by an active stroke unable to be seen on current CT of the head. Dedicated CT angiogram of the brain to determine cerebellar function and possible stroke in the brainstem has been ordered. This morning the patient's atrial fibrillation became uncontrolled with a ventricular rate of 150 at the bedside and 158. She was given a dose IV Lopressor due to inability to take oral atenolol due to unstable respiratory status. Amiodarone had also been given. VITALS: Temperature 98.2, pulse 118, respiratory 22, blood pressure 107/51, 98% on 3 liters nasal canula. Generally, the patient is awake, alert and oriented to person. Difficult to speak with a CPAP, but is requesting the CPAP to be removed. LUNGS: Bilateral rhonchi, diminished breath sounds. HEART: S1, S2, irregularly irregular, tachycardiac. ABDOMEN: Soft, nontender, nondistended. EXTREMITIES: Trace edema. LABORATORY DATA: pH 7.525, pCO2 34, pO2 141. White count 6.1, hemoglobin 11, hematocrit 35, platelet count 252. Sodium 139, potassium 3.9, chloride 105, bicarbonate 28, BUN 25, creatine 0.85, glucose of 136, magnesium of 1.6. Troponin i 0.95, BNP of 2660. Urine culture 09/22 with E. Coli. Chest x-ray on 09/27 shows mildly enlarged heart with pacemaker, otherwise no other acute disease. 09/26 chest x-ray no evidence of acute pulmonary pathology. CT angiogram of the brain is still pending. 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 Small vessel ischemic disease and moderate volume loss. ASSESSMENT AND PLAN: This is an 81-year-old female with history of atrial fibrillation on chronic Xarelto, deep vein thrombosis (DVT) on anticoagulation, Alzheimer's dementia, pacemaker, tachybrady syndrome, chronic kidney disease stage III, chronic obstructive pulmonary disease (COPD), obstructive sleep apnea, constipation, hypertension, reflux and rheumatoid arthritis, was sent from the long-term with fevers, right-sided weakness, slurred speech and flattening of the right nasal labial fold. Three CTs of the head were negative for acute cerebrovascular accident (CVA). Magnetic Resonance Imaging (MRI) could not be performed due to pacemaker placement. Her pacer was readjusted. She was treated for a urinary tract infection (UTI). The patient developed respiratory distress and was found to have congestive heart failure (CHF) decompensated and treated with intravenous Lasix. The patient stabilized and was transferred to the medical surgical floor where she developed episodes of apnea, persistent right-sided weakness and slurred speech and dysarthria. At which point, repeat CT was also negative. She was emergently transferred to intensive care unit (ICU) due to apneic episodes thought to be secondary to transient ischemic attack (TIA) in the brainstem area. Therefore, a dedicated clear to auscultation of the brain was performed today. She is continued on current Xarelto and neurology consult pending. IMPRESSION: 1. Right-sided weakness, dysarthria/transient ischemic attack with acute mental status changes and acute metabolic encephalopathy. The patient is currently on full supportive care per her wishes. However, she is for DO NOT RESUSCITATE, DO NOT INTUBATE and currently saying that the CPAP mask should be removed. She would not want any artificial feeding, apparently too unstable to take oral intake. At this time, the patient's transient ischemic attack (TIA) is currently treated with Eliquis. Neurology has been consulted to make further recommendations. She is continued on Xarelto for her history of chronic atrial fibrillation. CT angiogram of the brain has been done, awaiting results. 2. Continue with neuro-checks every 4 hours, neurology consult, continue with anticoagulation with Xarelto. Echocardiogram has been performed, unremarkable. 3. E. Coli urinary tract infection (UTI). Finishing 10 days of nitrofurantoin as a total course. 4. Atrial fibrillation with rapid ventricular rate. The patient was given digoxin, metoprolol, amiodarone this morning. We have held off on atenolol. She has been able to swallow oral pills. Will continue Xarelto. Has pacemaker in case the patient becomes bradycardiac. 5. Congestive heart failure (CHF) decompensated with normal ejection fraction, diastolic dysfunction. The patient was given Lasix yesterday. A chest x-ray today shows no decompensation. Elevated BNP is most likely from Cor pulmonale and chronic obstructive pulmonary disease (COPD) and history of severe sleep apnea. 6. Constipation. Bowel regimen. 7. Rheumatoid arthritis on steroids and home medications. 8. Reflux, on proton pump inhibitor (PPI). 9. Hypertension. Beta blockade. 10. Deep vein thrombosis (DVT) prophylaxis. On Xarelto for atrial fibrillation. DIET: Currently, unstable from the respiratory status. To resume a normal diet. Currently nothing by mouth. Once respiratory status is improved, may resume a puree diet.
[2016-09-28 04:00] VITALS: BP 106/59
[2016-09-28] MEDS: SLF 3 ML SYR IV SCH ×3 (04:33→20:33)
[2016-09-28 05:21] LABS: MEAN CORPUSCULAR HEMOGLOBIN 27.1 pg (27.0-33.0); MEAN CORPUSCULAR HGB CONC 31.5 g/dl (32.0-36.5); RED CELL DISTRIBUTION WIDTH 14.9 % (11.5-14.5); WHITE BLOOD COUNT 5.9 K/mm3 (4.0-10.0)
[2016-09-28 05:38] LABS: ANION GAP 7 MEQ/L (8-16); BLOOD UREA NITROGEN 26 MG/DL (7-18); CALCIUM LEVEL 9.5 MG/DL (8.8-10.2); CARBON DIOXIDE LEVEL 26 MEQ/L (21-32); CHLORIDE LEVEL 106 MEQ/L (98-107); CREATININE FOR GFR 0.78 MG/DL (0.55-1.02); GLOMERULAR FILTRATION RATE > 60.0 (>32); GLUCOSE, FASTING 110 MG/DL (83-110); POTASSIUM SERUM 3.9 MEQ/L (3.5-5.1); SODIUM LEVEL 139 MEQ/L (136-145)
[2016-09-28 07:24] VITALS: BP 105/61
[2016-09-28] MEDS ORDERED: AMIODARONE HCL 150 MG in APPROPRIATE DILUENT 1 EA IV STA (07:43)
[2016-09-28] MEDS ORDERED: DIGOXIN INJ 0.5 MG/2 ML AMP (J1160) IV STA (07:48)
[2016-09-28] MEDS: ATENOLOL 50 MG TAB PO SCH ×2 (08:13→20:33)
[2016-09-28] MEDS: POLYVINYL ALCOHOL OPHTH SOLN 15 ML(LIQUITEARS) OU SCH ×4 (08:21→20:33)
[2016-09-28 08:31] LABS: DIGOXIN LEVEL 0.6 NG/ML (0.5-2.0)
--- NOTE | 2016-09-28 08:55 | IPN ---
DATE: 09/27/2016 Sammi was seen in the ICU. She had been transferred for acute respiratory alkalosis and some lethargy. She also was noted to have atrial fibrillation with rapid ventricular response. She was seen by Dr. Ventura. The patient was supposed to be on a CPAP at home but has not been using it at the [facility]. In the ICU today, she denies any complaint. She is sleepy but easily arousable. She does not have any complaints. Temperature is 97.9, pulse 123 irregular, respiratory rate 20, blood pressure 111/64, oxygen saturation 96% on 3 liters nasal cannula. She remains afebrile since 09/23. Heart: Normal S1, S2 irregular. Lungs: Few crackles at the bases. Abdomen: Soft, nontender. Extremities: Trace edema bilaterally. IMPRESSION: 1. Urinary tract infection due to E-coli on Macrobid doing well, afebrile with normal white count. 2. Respiratory alkalosis. 3. Atrial fibrillation with rapid ventricular response. The patient has received amiodarone. PLAN: Continue Macrobid until 10/04. The patient has no evidence of active infection at this time. Infectious disease signing off.
--- NOTE | 2016-09-28 09:03 | REP ---
PORTABLE CHEST: AP portable view of the chest is performed and compared to prior study of 09/27/2016. There is cardiomegaly. There is an increase in the interstitial markings bilaterally suggesting increased interstitial edema. There also appears to be mild increase in mild bibasilar atelectasis/infiltrate. There is cardiomegaly. There is calcified tortuous aorta. Left dual lead pacemaker is noted. IMPRESSION: Mild increase in interstitial edema and mild bibasilar infiltrates/atelectasis. Signed by Han Simmons MD 09/28/2016 05:20 P
[2016-09-28] MEDS: FERROUS SULFATE 325MG TAB PO SCH (10:25)
[2016-09-28] MEDS: ACETAMINOPHEN 500 MG TAB PO SCH ×3 (10:26→20:32)
[2016-09-28] MEDS: ROSUVASTATIN 10 MG TAB (CRESTOR) PO SCH (10:26)
[2016-09-28] MEDS: predniSONE 5 MG TAB PO SCH (10:26)
[2016-09-28] MEDS: PRIMIDONE 50 MG TAB PO SCH (10:26)
[2016-09-28] MEDS: NITROFURANTOIN (MACROBID) 100 MG CAP PO SCH ×2 (10:26→20:32)
[2016-09-28 11:20] VITALS: BP 149/71
[2016-09-28 12:00] VITALS: BP 143/68
[2016-09-28] MEDS ORDERED: NS 1,000 ML IV SCH (17:45)
[2016-09-28] MEDS: RIVAROXABAN 20 MG TAB (XARELTO) PO SCH (17:49)
[2016-09-28 20:00] VITALS: BP 105/58
[2016-09-28] MEDS: VITAMIN D 1,000 INTERNATIONAL UNITS TABLET PO SCH (20:32)
--- NOTE | 2016-09-28 22:25 | IPN ---
DATE OF SERVICE: 09/28/2016 Patient seen and examined at the bedside. Chart has been reviewed. Patient continues to have atrial fibrillation despite dose of amiodarone, Lopressor, digoxin yesterday. Rate improved slightly to about 75-95, but increased back up into the 140s. This morning, she is awake, alert, oriented to herself. Continues to have garbled speech. Per nursing, urine output had been decreased yesterday, she was placed on 60 mL normal saline at 60 mL/h with output of 845 overall. Currently is still awaiting speech evaluation for risk of aspiration. VITAL SIGNS: Temperature 98.2, pulse 88-146 irregular, respiratory rate 18, blood pressure 105-137 systolic. LUNGS: Diminished with fine crackles at the bases. HEART: S1, S2, irregularly irregular. ABDOMEN: Soft, nontender, nondistended. Positive bowel sounds. EXTREMITIES: No pitting edema. NEUROLOGICAL: Patient continues to have purposeful movements. She is able to answer to her name. Disoriented to time and place. LABORATORY DATA: White count 5.9, hemoglobin 10, hematocrit 34, platelet count 226. Sodium 139, potassium 3.8, chloride 106, bicarbonate 26, BUN 26, creatine 0.78, glucose of 110. Microbiology: Escherichia (E) coli. ASSESSMENT AND PLAN: This is an 81-year-old female with history of atrial fibrillation on chronic Xarelto, deep vein thrombosis (DVT) on anticoagulation, Alzheimer's dementia, pacemaker, tachybrady syndrome, chronic kidney disease stage III, chronic obstructive pulmonary disease (COPD), obstructive sleep apnea, had been on continuous positive airway pressure (CPAP) at home, has not used this in several months, constipation, hypertension, reflux, rheumatoid arthritis, was sent from the long term with fevers, right-sided weakness, slurred speech and flattening of the right nasal labial fold. Three CTs of the head and CT angiography of the brain were all negative for acute myocardial infarction (AR). Magnetic resonance imaging (MRI) could not be performed due to pacemaker. Her pacer was adjusted. She was treated for a urinary tract infection intravenous antibiotics, currently on Macrodantin to complete a full 10-day course. During her hospital stay, she has developed respiratory distress, found to have decompensated congestive heart failure (CHF) treated with intravenous Lasix. She was stabilized transferred to the medical/surgical floor where she developed episodes of apnea, persistent right-sided weakness, slurred speech, and dysarthria at which point repeat CT angiography of the brain still remained negative for CVA and she was emergently transferred to intensive care unit (ICU) due to apneic episodes thought to be secondary to possible transient ischemic attack (TIA) in brainstem area, but CT angiography was negative. She is currently continued on Xarelto. Neurology has been consulted. Dr. Mena recommends no escalation of her current dose of anticoagulation. IMPRESSION: 1. Acute metabolic encephalopathy. No acute CVA on repeat CTs and CT angiography of the brain. Patient's mental status change may have been simply due to urinary tract infection. Is currently on Macrodantin. Dr. Yin has been consulted. Patient had been on intravenous (IV) antibiotics prior to switching to oral pills. 2. Respiratory alkalosis with altered mental status. At this time, patient's apnea is thought is to secondary to untreated obstructive sleep apnea. She had not been on her continuous positive airway pressure (CPAP) for quite some time. Dr. Perez will place her back on her home dose. Once patient's atrial fibrillation is improved, she may be transferred to medical/surgical floor. 3. Atrial fibrillation with rapid ventricular response. The patient's blood pressure is permitting of resuming her atenolol at current dose 50 twice a day. She did receive intravenous amiodarone, digoxin yesterday and IV Lopressor due to systolic pressure of 90s at the bedside. Patient did have some response, but reverted back to an irregular rhythm with rapid ventricular response and she is continued on Xarelto. Dr. Holder has been consulted for heart rate management. 4. Congestive heart failure (CHF), decompensated, normal ejection fraction, diastolic dysfunction. Due to low blood pressure, Lasix has been withheld. Repeat chest x-ray shows no decompensation. Elevated beta-natruretic peptide (BNP) most likely due to cor pulmonale and chronic obstructive pulmonary disease (COPD) and severe obstructive sleep apnea. Due to low blood pressure, patient's Lasix has not been resumed. 5. Escherichia (E) coli urinary tract infection. Finishing 10 days of nitrofurantoin total dose. 6. Constipation. Bowel regimen. 7. Rheumatoid arthritis. Home medications. 8. Reflux. Proton pump inhibitor (PPI). 9. Hypertension. Currently with low blood pressure. Currently on beta blockade. DISPOSITION: Once patient's atrial fibrillation is rate controlled, she may be transferred to medical/surgical floor with her home regimen of CPAP.
[2016-09-29] VITALS (7 sets, daily range): BP systolic 112–133; BP diastolic 58–71
[2016-09-29 04:55] LABS: MEAN CORPUSCULAR HEMOGLOBIN 27.4 pg (27.0-33.0); MEAN CORPUSCULAR HGB CONC 31.6 g/dl (32.0-36.5); MEAN CORPUSCULAR VOLUME 86.6 fl (80.0-96.0); RED CELL DISTRIBUTION WIDTH 15.2 % (11.5-14.5); WHITE BLOOD COUNT 7.2 K/mm3 (4.0-10.0)
[2016-09-29 05:06] LABS: ANION GAP 7 MEQ/L (8-16); BLOOD UREA NITROGEN 23 MG/DL (7-18); CALCIUM LEVEL 9.5 MG/DL (8.8-10.2); CARBON DIOXIDE LEVEL 25 MEQ/L (21-32); CHLORIDE LEVEL 110 MEQ/L (98-107); CREATININE FOR GFR 0.72 MG/DL (0.55-1.02); GLOMERULAR FILTRATION RATE > 60.0 (>32); GLUCOSE, FASTING 142 MG/DL (83-110); MAGNESIUM LEVEL 1.8 MG/DL (1.8-2.4); POTASSIUM SERUM 3.8 MEQ/L (3.5-5.1); SODIUM LEVEL 142 MEQ/L (136-145)
[2016-09-29] MEDS: SLF 3 ML SYR IV SCH ×3 (06:00→20:11)
[2016-09-29] MEDS ORDERED: FUROSEMIDE 20 MG/2 ML VIAL (J1940) IV ONE (07:00)
[2016-09-29] MEDS: NITROFURANTOIN (MACROBID) 100 MG CAP PO SCH ×2 (08:05→20:09)
[2016-09-29] MEDS: ATENOLOL 50 MG TAB PO SCH ×2 (08:05→20:11)
[2016-09-29] MEDS: predniSONE 5 MG TAB PO SCH (08:05)
[2016-09-29] MEDS: ROSUVASTATIN 10 MG TAB (CRESTOR) PO SCH (08:05)
[2016-09-29] MEDS: FERROUS SULFATE 325MG TAB PO SCH (08:05)
[2016-09-29] MEDS: ACETAMINOPHEN 500 MG TAB PO SCH ×3 (08:06→20:10)
[2016-09-29] MEDS: PRIMIDONE 50 MG TAB PO SCH (08:06)
[2016-09-29] MEDS: POLYVINYL ALCOHOL OPHTH SOLN 15 ML(LIQUITEARS) OU SCH ×4 (08:06→20:11)
[2016-09-29] MEDS: RIVAROXABAN 20 MG TAB (XARELTO) PO SCH (17:18)
[2016-09-29] MEDS: VITAMIN D 1,000 INTERNATIONAL UNITS TABLET PO SCH (20:09)
--- NOTE | 2016-09-29 20:15 | IPN ---
DATE: 09/29/2016 The patient was seen and examined at the bedside. Chart has been reviewed. The patient is much more interactive. Answers questions appropriately this morning. She is being fed at the bedside by her nurse with a puree diet. Following commands. Temperature is 97.4, pulse 91, respiratory rate 24, blood pressure 128/58, 96% on 2 liters nasal cannula. Telemetry shows atrial fibrillation. Ventricular rate of 86 to 96. Generally, the patient is awake, alert, oriented. Still with some dysarthria. No facial asymmetry. Tongue is midline. LUNGS: Lungs are diminished, but clear to auscultation. HEART: S1, S2, irregularly irregular. ABDOMEN: Soft, nontender, nondistended. EXTREMITIES: Have no pitting edema. White count is 7.3, hemoglobin 10, hematocrit 34, platelet count 268. Sodium 142, potassium 3.8, chloride 110, bicarbonate 25, BUN 23, creatine 0.72, glucose of 142. Urine culture of 09/22, E. Coli. ASSESSMENT AND PLAN: This is an 81-year-old female with history of atrial fibrillation on chronic Xarelto, deep vein thrombosis (DVT) on anticoagulation, Alzheimer's dementia, pacemaker, tachybrady syndrome, chronic kidney disease stage III, chronic obstructive pulmonary disease (COPD) and obstructive sleep apnea, been on CPAP at home, has not used this in several months, constipation, hypertension, reflux, rheumatoid arthritis, was sent from a correction with fever, right-sided weakness, slurred speech and flattening of the right nasal labial fold. Three CTs of the brain were negative. CT angiogram of the brain was also negative. Magnetic Resonance Imaging (MRI) could not be performed due to pacemaker. Pacemaker was adjusted. She was treated for urinary tract infection (UTI) and she completed a full course of Macrodantin for 10 days. She developed respiratory distress after being decompensated with congestive heart failure (CHF), treated with IV Lasix, stabilized and transferred to [facility] floor where she developed episodes of apnea. She was transferred back to intensive care unit where she was found to have significant respiratory alkalosis. CT angiogram of the brain was negative acute cerebrovascular accident (CVA). Apneic episodes were thought to be secondary to untreated obstructive sleep apnea. The patient awakened and improved clinically. Currently no a puree diet due to aspiration risk from altered mental status. Neurology has been consulted. Recommended no escalation of recurrent dose of anticoagulation. IMPRESSION: Acute metabolic encephalopathy. No acute cerebrovascular accident (CVA). Repeat CT and CT angiogram of the brain. Mental status changes may have been secondary to untreated obstructive sleep apnea, respiratory alkalosis and urinary tract infection, currently on Macrodantin finishing a 10 day course. Respiratory alkalosis with altered mental status, thought to be secondary to untreated obstructive sleep apnea. She had not been on her continuous positive airway pressure for quite some time. Dr. Perez had seen the patient. She had been stable on 2 liters nasal cannula. Once the patient's atrial fibrillation is stabilized, she may be transferred to medical surgical floor. Atrial fibrillation with rapid ventricular response, improved. Today's rate is in the 90s. The patient's blood pressure was in the 90s and able to use her home dose atenolol, was given amiodarone and digoxin. Today, appears to be better controlled. Congestive heart failure (CHF) decompensation. Normal ejection fraction. Diastolic dysfunction. Lasix for diuresis. Strict input and output and daily weights E. Coli. Finished a 10 day course of nitrofurantoin. Constipation regimen. Rheumatoid arthritis on home medications. Reflux on proton pump inhibitor (PPI). Code status: DO NOT RESUSCITATE, DO NOT INTUBATE. Hypertension. Currently on beta blockade.
[2016-09-30] VITALS: BP 124/63
[2016-09-30 04:00] VITALS: BP 101/53
[2016-09-30] MEDS: SLF 3 ML SYR IV SCH ×3 (06:00→22:22)
[2016-09-30 06:57] LABS: ABG BASE EXCESS 0.3 (-2.0-2.0); ABG HCO3 26.4 MEQ/L (22.0-26.0); ABG PARTIAL PRESSURE CO2 49.3 mmHg (35.0-45.0); ABG PARTIAL PRESSURE O2 104.8 mmHg (75.0-100.0); ABG STANDARD HCO3 24.8 MEQ/L (22.0-26.0); ABG TOTAL CO2 27.9 MEQ/L (23.0-31.0); ABG pH (ARTERIAL) 7.347 UNITS (7.350-7.450)
[2016-09-30] MEDS ORDERED: MAG SULF 1GM/100ML (MAG RUN) 1 GM in APPROPRIATE DILUENT 1 EA IV ONE (07:00)
[2016-09-30 07:25] LABS: ALBUMIN 2.1 GM/DL (3.2-5.2); ALBUMIN/GLOBULIN RATIO 0.54 (1.00-1.93); BILIRUBIN,DIRECT 0.1 MG/DL (0.0-0.2); BILIRUBIN,TOTAL 0.4 MG/DL (0.2-1.0)
[2016-09-30] MEDS: predniSONE 5 MG TAB PO SCH (09:11)
[2016-09-30] MEDS: ROSUVASTATIN 10 MG TAB (CRESTOR) PO SCH (09:11)
[2016-09-30] MEDS: FERROUS SULFATE 325MG TAB PO SCH (09:11)
[2016-09-30] MEDS: NITROFURANTOIN (MACROBID) 100 MG CAP PO SCH ×2 (09:12→22:16)
[2016-09-30] MEDS: ATENOLOL 50 MG TAB PO SCH ×2 (09:13→22:15)
[2016-09-30] MEDS: ACETAMINOPHEN 500 MG TAB PO SCH ×3 (09:13→22:15)
[2016-09-30] MEDS: POLYVINYL ALCOHOL OPHTH SOLN 15 ML(LIQUITEARS) OU SCH ×4 (09:14→22:16)
[2016-09-30] MEDS: PRIMIDONE 50 MG TAB PO SCH (09:15)
--- NOTE | 2016-09-30 09:31 | REP ---
PORTABLE CHEST, ONE VIEW: HISTORY: Shortness of breath. COMPARISON: 09/28/2016 An increase in interstitial markings is present in the lungs consistent with interstitial edema. Increased density is present in the left lower lobe consistent with atelectasis or infiltrate. The cardiac silhouette is enlarged. The pulmonary vasculature is prominent. A cardiac pacemaker is present. IMPRESSION: 1. Interstitial edema, unchanged compared to the previous study. 2. Left lower lobe atelectasis or infiltrate. 3. cardiomegaly. Signed by Marko Parsons MD 09/30/2016 09:34 A
--- NOTE | 2016-09-30 10:15 | IPN ---
DATE: 09/30/2016 The patient was seen and examined at the bedside. Chart has been reviewed. The patient was kept on CPAP at her home setting, per Dr. Perez. Appeared to be stable currently on nasal cannula. She is much more awake. Her atrial fibrillation on telemetry has improved with a ventricular rate of 72 to 102. Blood pressure is stable and has been above 100. She is currently on her home dose of atenolol 50 mg twice a day. The patient's urine output has been around 15 to 20 mL per hour, and the patient was placed on intravenous fluids to improve urine output. She currently denies any worsening shortness of breath. She is extremely thirsty this morning. Input is 1310 and output of 775, positive balance of 535. Current weight is 68.2 kg. Previous weight of 74 kg. Per nursing, the patient has been difficult to arouse yesterday around noontime and again this morning at change of shift. Arterial blood gas shows slight elevation in CO2 level at 49.3, pH of 7.34. PHYSICAL EXAMINATION: VITAL SIGNS: Temperature 97, pulse 90 and irregular. Respiratory rate 20, blood pressure 101/53, 95% on 2 liters of nasal cannula. GENERAL: The patient is much more awake and alert. Face is symmetric. Tongue is midline. Pupils are round and reactive to light. The patient is answering questions appropriately. Awake, alert, oriented to person only. LUNGS: Lungs are clear to auscultation. HEART: S1, S2, irregularly irregular. Tachycardic. ABDOMEN: Soft, nontender, nondistended. EXTREMITIES: No cyanosis or clubbing. No pitting edema. LABORATORY DATA: White count is 7.3, hemoglobin 10, hematocrit 34, platelet count 268. Sodium 142, potassium 3.8, chloride 110, bicarbonate 25, BUN 23, creatine 0.72, glucose of 142. Chest x-ray is still pending official report. ASSESSMENT AND PLAN: This is an 81-year-old female with history of atrial fibrillation on chronic Xarelto, deep vein thrombosis (DVT) on anticoagulation, Alzheimer's dementia, pacemaker, tachybrady syndrome, chronic kidney disease stage III, chronic obstructive pulmonary disease (COPD) and obstructive sleep apnea, been on CPAP at home, has not used this in several months, constipation, hypertension, reflux, rheumatoid arthritis, was sent from a senior living with fever, right-sided weakness, slurred speech and flattening of the right nasal labial fold. Three CTs of the brain were negative. CT angiogram of the brain was also negative for brainstem infarct. MRI could not be performed due to pacemaker. Pacemaker was adjusted by cardiology. She was treated for urinary tract infection (UTI) and she completed a full course of 10 days of Macrodantin. The patient developed respiratory distress and episodes of sleep apnea after being treated for decompensated heart failure (CHF), IV Lasix, stabilized. She was transferred back to intensive care unit (ICU) due to apneic episodes. She was placed on CPAP briefly. Episode was thought to be due to untreated sleep apnea. She is currently back on her home setting of CPAP. She has been difficult to arouse now with slight CO2 retention. CURRENT ISSUES: 1. Acute metabolic toxic encephalopathy. No acute cerebrovascular accident (CVA) on CT and CT angiogram of the brain. Apneic episode was thought to be secondary to untreated sleep apnea. The patient was also treated for urinary tract infection. Currently, she is finishing a 10-day course of Macrodantin. 2. CO2 retention with untreated obstructive sleep apnea. History of chronic obstructive pulmonary disease (COPD). The patient is placed back on her home settings of CPAP. We will continue to monitor in progressive care unit (PCU) due to increasing levels of CO2 and difficult to arouse yesterday. 3. Atrial fibrillation with rapid ventricular response, currently improved. Rate is adequate from 70 to about 105. The patient is on her home dose atenolol 50 mg twice a day. Should her blood pressure be low, may give dose of Digoxin or amiodarone. 4. Congestive heart failure (CHF), decompensated with diastolic dysfunction. Lasix if blood pressure permits. Strict input and output, daily weights. 5. Decreased urine output. Monitor input and output, fluid challenge if needed. 6. Abnormal cardiac markers secondary to congestive heart failure (CHF). 7. Escherichia (E) coli urinary tract infection. Finishing a 10 day course of nitrofurantoin. 8. Constipation. On bowel regimen. 9. Rheumatoid arthritis, on home medications. 10. Reflux, on proton pump inhibitor (PPI). 11. Code status: DO NOT RESUSCITATE, DO NOT INTUBATE. 12. Hypertension. Currently on atenolol with holding parameters. DISPOSITION: The patient will need physical therapy (PT) prior to discharge back to senior living and stabilization of her respiratory status.
[2016-09-30 14:00] VITALS: BP 138/63
[2016-09-30] MEDS: RIVAROXABAN 20 MG TAB (XARELTO) PO SCH (17:14)
[2016-09-30 22:00] VITALS: BP 140/67
[2016-09-30] MEDS: VITAMIN D 1,000 INTERNATIONAL UNITS TABLET PO SCH (22:15)
[2016-10-01 06:00] VITALS: BP 140/64
[2016-10-01] MEDS: SLF 3 ML SYR IV SCH ×3 (06:01→22:16)
[2016-10-01] MEDS: NITROFURANTOIN (MACROBID) 100 MG CAP PO SCH ×2 (09:12→22:14)
[2016-10-01] MEDS: ACETAMINOPHEN 500 MG TAB PO SCH ×3 (09:12→22:14)
[2016-10-01] MEDS: ATENOLOL 50 MG TAB PO SCH ×2 (09:13→22:16)
[2016-10-01] MEDS: predniSONE 5 MG TAB PO SCH (09:13)
[2016-10-01] MEDS: ROSUVASTATIN 10 MG TAB (CRESTOR) PO SCH (09:13)
[2016-10-01] MEDS: FERROUS SULFATE 325MG TAB PO SCH (09:13)
[2016-10-01] MEDS: POLYVINYL ALCOHOL OPHTH SOLN 15 ML(LIQUITEARS) OU SCH ×4 (09:14→22:16)
[2016-10-01] MEDS: PRIMIDONE 50 MG TAB PO SCH (09:14)
[2016-10-01] MEDS: RIVAROXABAN 20 MG TAB (XARELTO) PO SCH (17:18)
--- NOTE | 2016-10-01 17:44 | IPN ---
DATE: 10/01/2016 Yanelis was transferred back from the intensive care unit (ICU) to the floor. Her mental status seems to be back to her baseline. Atrial fibrillation is better controlled. She is alert and oriented. She states she is not hungry. She does not want to eat. She has had no fever or chills. No nausea, vomiting or diarrhea. She has remained afebrile in the past week. LABORATORY DATA: White count is 7.2, hemoglobin 10.9, hematocrit 34.3, platelets 268. Sodium 142, potassium 3.8, chloride 110, bicarbonate 25, BUN 23, creatinine 0.7, AST 84, ALT 203, alkaline phosphatase 166, ammonia 27, CPK 25, troponin 0.61, albumin 2.1. Chest x-ray done on 09/30/2016 shows interstitial edema, left lower lobe atelectasis or infiltrate and cardiomegaly. IMPRESSION: 1. Urinary tract infection, on Macrodantin, Escherichia (E) coli, doing better, afebrile. 2. CO2 retention with untreated sleep apnea, possibly cause of encephalopathy, improved. The patient seems to be back to her baseline. 3. Congestive heart failure, oxygen saturation is 95-100% on 2 liters, seems to be doing better. 4. Increased AST and ALT, most likely medication related. The patient is on Crestor 10 mg daily since 09/26/2016, could be the reason for elevated liver function tests (LFTs). End of therapy for Macrodantin is 10/04/2016. Infectious disease signing off.
[2016-10-01 20:40] LABS: MEAN CORPUSCULAR HEMOGLOBIN 27.5 pg (27.0-33.0); MEAN CORPUSCULAR HGB CONC 31.7 g/dl (32.0-36.5); MEAN CORPUSCULAR VOLUME 86.7 fl (80.0-96.0); RED CELL DISTRIBUTION WIDTH 15.9 % (11.5-14.5); WHITE BLOOD COUNT 7.5 K/mm3 (4.0-10.0)
[2016-10-01 21:03] LABS: ALBUMIN 2.1 GM/DL (3.2-5.2); ALBUMIN/GLOBULIN RATIO 0.62 (1.00-1.93); ALKALINE PHOSPHATASE 139 U/L (45-117); ALT/SGPT 106 U/L (12-78); ANION GAP 5 MEQ/L (8-16); AST/SGOT 28 U/L (15-37); BILIRUBIN,TOTAL 0.4 MG/DL (0.2-1.0); BLOOD UREA NITROGEN 18 MG/DL (7-18); CALCIUM LEVEL 8.5 MG/DL (8.8-10.2); CARBON DIOXIDE LEVEL 28 MEQ/L (21-32); CHLORIDE LEVEL 107 MEQ/L (98-107); CREATININE FOR GFR 0.77 MG/DL (0.55-1.02); GLOMERULAR FILTRATION RATE > 60.0 (>32); GLUCOSE, FASTING 125 MG/DL (83-110); POTASSIUM SERUM 3.8 MEQ/L (3.5-5.1); SODIUM LEVEL 140 MEQ/L (136-145); TOTAL PROTEIN 5.5 GM/DL (6.4-8.2)
[2016-10-01 22:00] VITALS: BP 104/62
[2016-10-01] MEDS: VITAMIN D 1,000 INTERNATIONAL UNITS TABLET PO SCH (22:15)
[2016-10-02 06:00] VITALS: BP 116/60
[2016-10-02] MEDS: SLF 3 ML SYR IV SCH ×3 (06:00→20:55)
--- NOTE | 2016-10-02 06:27 | IPN ---
DATE: 10/01/2016 Patient is seen and examined at the bedside. Chart has been reviewed. This morning patient is much more awake and alert. She has been on CPAP all night. Still on a dysphagia pureed diet. She is responding, following commands. VITAL SIGNS: Temperature 97.2, pulse 77, respiratory rate 20, blood pressure 140/64, 95% on one liter nasal cannula. Generally, patient is awake, alert, oriented times two to name and place. She continues to have garbled speech. Obeys commands. Pupils equally round and reactive to light. Extraocular muscles are intact. Right upper and lower extremities have diminished strength. Right side flattened nasolabial folds. Tongue is midline. 5/5 motor function left upper and lower extremity. Right upper and lower extremity 4/5 but intact. Slow to respond with slurred speech. LABORATORY DATA: Pending. ASSESSMENT AND PLAN: This is an 81-year-old female with history of atrial fibrillation on chronic Xarelto, deep vein thrombosis (DVT) on anticoagulation, Alzheimer's dementia, pacer, tachybrady syndrome, chronic kidney disease stage III, chronic obstructive pulmonary disease (COPD) with obstructive sleep apnea, on continuous positive airway pressure (CPAP) at home, has not used in several months at the nursing facility, constipation, hypertension, reflux, rheumatoid arthritis, sent from care home with fever, right-sided weakness, slurred speech and flattening of the right nasolabial fold. CT of the brain times three was [address] angiogram of the brain also negative for brainstem or cerebellar infarct. MRI could not be performed due to pacemaker placement, pacemaker was adjusted by cardiology. Was treated for urinary tract infection (UTI) initially with IV antibiotics and then oral Macrodantin. Patient developed respiratory distress, episodes of sleep apnea, was treated for decompensated diastolic heart failure with IV Lasix initially. Patient was transferred to intensive care unit (ICU) due to respiratory alkalosis due to untreated obstructive sleep apnea. She is currently on her home setting of CPAP. Transferred to medical/surgical floor on a pureed dysphagia diet. CURRENT ISSUES: Acute metabolic encephalopathy. No acute CVA on CT of the brain times three and CT angiogram of the brain. However, patient's clinical findings still unexplained and appears to be focal. Per neurology, Dr. Mena, continue with current anticoagulation. Patient has also been treated for a urinary tract infection (UTI) with IV and oral antibiotics. Obstructive sleep apnea. On her home setting of continuous positive airway pressure (CPAP). Atrial fibrillation with rapid ventricular response. Patient did receive IV amiodarone and digoxin while in the intensive care unit (ICU) due to low blood pressure. Currently improved on her home dose of atenolol. Appears to be rate controlled. Congestive heart failure (CHF), decompensated, diastolic dysfunction. Lasix had been given with strict input and output, daily weights. Euvolemia. Decreased urine output. Patient had required fluid challenges. We ordered a swallow evaluation to determine if patient can take thin liquids. Currently on honey thickened liquids and pureed diet. Abnormal cardiac markers due to congestive heart failure. Escherichia (E) coli urinary tract infection. Completed IV antibiotics. Constipation. On bowel regimen. Rheumatoid arthritis. On home medications. Reflux. On proton pump inhibitor (PPI). CODE STATUS: DO NOT RESUSCITATE, DO NOT INTUBATE. Hypertension. On atenolol with holding parameters. MTDD
[2016-10-02] MEDS: ROSUVASTATIN 10 MG TAB (CRESTOR) PO SCH (09:17)
[2016-10-02] MEDS: NITROFURANTOIN (MACROBID) 100 MG CAP PO SCH ×2 (09:17→20:55)
[2016-10-02] MEDS: ACETAMINOPHEN 500 MG TAB PO SCH ×3 (09:17→20:54)
[2016-10-02] MEDS: predniSONE 5 MG TAB PO SCH (09:17)
[2016-10-02] MEDS: PRIMIDONE 50 MG TAB PO SCH (09:17)
[2016-10-02] MEDS: FERROUS SULFATE 325MG TAB PO SCH (09:17)
[2016-10-02] MEDS: LACTULOSE 20 GM/30 ML SYRUP UD PO SCH ×4 (09:17→21:09)
[2016-10-02] MEDS: ATENOLOL 50 MG TAB PO SCH ×2 (09:17→20:55)
[2016-10-02] MEDS: POLYVINYL ALCOHOL OPHTH SOLN 15 ML(LIQUITEARS) OU SCH ×4 (09:18→20:55)
[2016-10-02 11:58] VITALS: BP 112/71
[2016-10-02] MEDS ORDERED: DIGOXIN INJ 0.5 MG/2 ML AMP (J1160) IV STA (12:17)
[2016-10-02 13:00] VITALS: BP 118/72
--- NOTE | 2016-10-02 16:21 | IPN ---
DATE: 10/02/2016 SUBJECTIVE: The patient is seen and examined in the room today. This morning the patient refused the blood draw. The patient stated she felt she was losing too much blood. When the patient was receiving lactulose today, the patient started having persistent tachycardia, and the heart rate has been maintained between 130 to 150s. The patient also complained of palpitations. Denies any chest pain. OBJECTIVE: VITAL SIGNS: The temperature is 97.8, pulse is 150, respirations 16, blood pressure is 112/71, pulse oximetry is 99% with 1 liter nasal cannula. The patient is lethargic, able to answer questions and follow commands. The patient is alert and awake. HEENT: Normocephalic, atraumatic. Extraocular motor grossly intact. CARDIOVASCULAR: Tachycardic, irregularly irregular. LUNGS: Decreased breath sounds bilaterally. I cannot appreciate any wheezes. ABDOMEN: Soft, nontender, nondistended. EXTREMITIES: No edema, no sign of cyanosis. LABORATORY DATA: None. Patient refused laboratory blood draw. Most recent lab was obtained at 8:00 p.m. on 10/01/2016, showed WBC 7.5, hemoglobin 10.5, hematocrit 33.1, platelet count is 206. Sodium is 140, potassium 3.8, chloride is 107, carbon dioxide 27, BUN is 18, creatinine is 0.77, GFR greater than 60, fasting glucose 125, calcium 8.5, total bilirubin 0.4, AST 28, ALT is 106, alkaline phosphatase is 139, ammonia level is 62, total protein 5.5, albumin 2.1. ASSESSMENT AND PLAN: 1. Atrial fibrillation with rapid ventricular response (RVR). The patient has been having persistent tachycardia. The patient is currently on atenolol 50 mg by mouth twice a day. I had a discussion with Dr. Holder. I will load the patient up with Digoxin, and the patient will be transferred to the progressive care unit (PCU). The patient is on Xarelto. 2. Tachybrady syndrome with a pacemaker. 3. Obstructive sleep apnea. The patient is on bilevel positive airway pressure (BiPAP). We will reach out to the nursing facility to see whether the patient has a BiPAP machine available. 4. Diastolic congestive heart failure. Will monitor input and output and daily weight. There was a concern that the patient had poor intake. The patient also has decreased urinary output. Lasix was on hold. 5. Acute metabolic encephalopathy. Multiple CT scans were performed, which were negative. The patient cannot tolerate the MRI due to the pacer. Neurology has been consulted. Recommend current anticoagulation. 6. Urinary tract infection. Urine culture grew Escherichia (E) coli. The patient has been taking Macrobid. Appreciate Dr. Yin's assistance. 7. Constipation. Elevated ammonia level. Will start lactulose with holding parameters. 8. Gastroesophageal reflux disease. 9. Alzheimer's dementia. 10. History of deep vein thrombosis (DVT), on Xarelto. 11. Deep vein thrombosis (DVT) prophylaxis. The patient is on Xarelto. MTDD
[2016-10-02 17:00] VITALS: BP 132/72
[2016-10-02] MEDS: RIVAROXABAN 20 MG TAB (XARELTO) PO SCH (17:52)
[2016-10-02] MEDS ORDERED: DIGOXIN INJ 0.5 MG/2 ML AMP (J1160) IV ONE (19:00)
[2016-10-02 20:00] VITALS: BP 119/59
[2016-10-02] MEDS: VITAMIN D 1,000 INTERNATIONAL UNITS TABLET PO SCH (20:54)
[2016-10-03] VITALS (10 sets, daily range): BP systolic 106–125; BP diastolic 52–62; O2SAT 95–96
[2016-10-03] MEDS ORDERED: DIGOXIN INJ 0.5 MG/2 ML AMP (J1160) IV ONE (01:00)
[2016-10-03 05:34] LABS: MEAN CORPUSCULAR HEMOGLOBIN 28.1 pg (27.0-33.0); MEAN CORPUSCULAR HGB CONC 32.1 g/dl (32.0-36.5); MEAN CORPUSCULAR VOLUME 87.6 fl (80.0-96.0); WHITE BLOOD COUNT 6.6 K/mm3 (4.0-10.0)
[2016-10-03] MEDS: LACTULOSE 20 GM/30 ML SYRUP UD PO SCH ×3 (06:00→21:11)
[2016-10-03] MEDS: SLF 3 ML SYR IV SCH ×3 (06:00→21:12)
[2016-10-03 06:06] LABS: ALKALINE PHOSPHATASE 126 U/L (45-117); ALT/SGPT 65 U/L (12-78); ANION GAP 6 MEQ/L (8-16); AST/SGOT 16 U/L (15-37); BILIRUBIN,TOTAL 0.3 MG/DL (0.2-1.0); BLOOD UREA NITROGEN 16 MG/DL (7-18); CALCIUM LEVEL 8.9 MG/DL (8.8-10.2); CARBON DIOXIDE LEVEL 27 MEQ/L (21-32); CHLORIDE LEVEL 110 MEQ/L (98-107); CREATININE FOR GFR 0.64 MG/DL (0.55-1.02); GLOMERULAR FILTRATION RATE > 60.0 (>32); GLUCOSE, FASTING 82 MG/DL (83-110); SODIUM LEVEL 143 MEQ/L (136-145)
[2016-10-03] MEDS: predniSONE 5 MG TAB PO SCH (09:00)
[2016-10-03] MEDS: ATENOLOL 50 MG TAB PO SCH ×2 (09:00→21:11)
[2016-10-03] MEDS: ACETAMINOPHEN 500 MG TAB PO SCH ×3 (09:02→21:11)
[2016-10-03] MEDS: ROSUVASTATIN 10 MG TAB (CRESTOR) PO SCH (09:02)
[2016-10-03] MEDS: NITROFURANTOIN (MACROBID) 100 MG CAP PO SCH ×2 (09:02→21:11)
[2016-10-03] MEDS: FERROUS SULFATE 325MG TAB PO SCH (09:02)
[2016-10-03] MEDS: POLYVINYL ALCOHOL OPHTH SOLN 15 ML(LIQUITEARS) OU SCH ×4 (09:03→21:12)
[2016-10-03] MEDS: FUROSEMIDE 40 MG/4 ML VIAL (J1940) IV SCH ×2 (09:03→17:21)
[2016-10-03] MEDS: PRIMIDONE 50 MG TAB PO SCH (13:07)
--- NOTE | 2016-10-03 15:31 | IPN ---
DATE: 10/03/2016 SUBJECTIVE: The patient is seen and examined in the room today. Patient, in the last 24 hours, has been receiving digoxin loading. Patient stated that she is feeling fine, no more palpitations. No overnight events are reported. OBJECTIVE: VITAL SIGNS: Temperature is 97, pulse is 74, respirations 22, blood pressure is 106/52, oxygen saturation is 96% with bilevel positive airway pressure (BiPAP). GENERAL: No sign of acute distress. Patient is just waking up from sleep. Wearing BiPAP. Patient is able to follow commands and answer questions, but patient did have slurred speech. HEENT: Normocephalic, atraumatic. Extraocular motors grossly intact. CARDIOVASCULAR: Irregularly irregular, heart rate is around 70-80s. LUNGS: Decreased breath sounds bilaterally. There are some minor crackles in the lung base. ABDOMEN: Soft, nontender, nondistended. Bowel sounds present. No rebound. No guarding. EXTREMITIES: No significant edema. No sign of cyanosis. LABORATORY DATA: WBC 6.6, hemoglobin 10.5, hematocrit 32.8, platelet count is 206. Sodium is 143, potassium 4, chloride is 110, carbon dioxide 27, BUN 16, creatinine 0.64, GFR is greater than 60, fasting glucose 82, calcium 8.9, total bilirubin 0.3, AST 16, ALT 65, alkaline phosphatase 126, ammonia level is 26, BNP is 3420. ASSESSMENT AND PLAN: 1. Atrial fibrillation with rapid ventricular response (RVR). Due to persistent tachycardia previously, patient was transferred to the progressive care unit (PCU) and patient was started on digoxin loading 24 hours. The case was discussed with Dr. Holder and since the digoxin loading, patient's heart rate has been maintained around 70s. Will check the digoxin level tomorrow and patient is also taking atenolol 50 by mouth twice a day. Patient is on Xarelto. 2. Tachybrady syndrome with a pacemaker. 3. Obstructive sleep apnea, on bilevel positive airway pressure (BiPAP). We will follow with skilled nursing facility to see whether patient will have a BiPAP machine available when patient is ready for discharge. 4. Grade 3 or grade 4 left ventricular diastolic dysfunction. Echocardiogram was performed on 09/23/2016. Currently, patient shows signs of fluid overload. Patient also has an elevated brain natriuretic peptide (BNP). I will start the patient on IV Lasix diuresis with holding parameters. 5. Acute metabolic encephalopathy. Multiple CT scans were performed, which all came back negative. Patient could not tolerate a MRI due to pacer. Neurologist has been consulted who does not feel patient had a stroke and recommended current anticoagulation. 6. Urinary tract infection. Urine culture grew Escherichia (E) coli. Patient has been taking Macrobid. Infectious disease specialist, Dr. Yin, has been consulted. We appreciate her assistance. 7. Constipation. 8. Elevated ammonia level. Patient had a dose of lactulose yesterday and patient's ammonia level returned to baseline today. 9. Gastroesophageal reflux disease. 10. Alzheimer's dementia. 11. History of deep vein thrombosis (DVT), on Xarelto. 12. Deep vein thrombosis (DVT) prophylaxis, on Xarelto.
[2016-10-03] MEDS: RIVAROXABAN 20 MG TAB (XARELTO) PO SCH (17:17)
[2016-10-03] MEDS: VITAMIN D 1,000 INTERNATIONAL UNITS TABLET PO SCH (21:11)
[2016-10-04] VITALS (12 sets, daily range): BP systolic 117–147; BP diastolic 58–80; O2SAT 87–97
[2016-10-04] MEDS: FUROSEMIDE 40 MG/4 ML VIAL (J1940) IV SCH ×3 (01:20→16:13)
[2016-10-04] MEDS: SLF 3 ML SYR IV SCH ×3 (05:49→20:17)
[2016-10-04] MEDS: LACTULOSE 20 GM/30 ML SYRUP UD PO SCH ×2 (05:49→13:28)
[2016-10-04 06:07] LABS: MEAN CORPUSCULAR HEMOGLOBIN 28.1 pg (27.0-33.0); MEAN CORPUSCULAR VOLUME 87.8 fl (80.0-96.0); RED CELL DISTRIBUTION WIDTH 16.1 % (11.5-14.5); WHITE BLOOD COUNT 7.7 K/mm3 (4.0-10.0)
[2016-10-04 06:49] LABS: ALBUMIN 2.3 GM/DL (3.2-5.2); ALBUMIN/GLOBULIN RATIO 0.52 (1.00-1.93); ALKALINE PHOSPHATASE 134 U/L (45-117); ALT/SGPT 56 U/L (12-78); ANION GAP 6 MEQ/L (8-16); AST/SGOT 19 U/L (15-37); BILIRUBIN,TOTAL 0.4 MG/DL (0.2-1.0); BLOOD UREA NITROGEN 16 MG/DL (7-18); CALCIUM LEVEL 9.2 MG/DL (8.8-10.2); CARBON DIOXIDE LEVEL 28 MEQ/L (21-32); CHLORIDE LEVEL 107 MEQ/L (98-107); CREATININE FOR GFR 0.86 MG/DL (0.55-1.02); GLOMERULAR FILTRATION RATE > 60.0 (>32); GLUCOSE, FASTING 104 MG/DL (83-110); POTASSIUM SERUM 3.8 MEQ/L (3.5-5.1); SODIUM LEVEL 141 MEQ/L (136-145); TOTAL PROTEIN 6.7 GM/DL (6.4-8.2)
--- NOTE | 2016-10-04 07:33 | CR ---
DATE OF CONSULTATION: 09/27/2016 REASON FOR CONSULTATION: Possible stroke. HISTORY OF PRESENT ILLNESS: Sammi Palma is an 81-year-old woman with history of Alzheimer's dementia, chronic kidney disease, chronic obstructive pulmonary disease (COPD), on continuous positive airway pressure (CPAP) for obstructive sleep apnea syndrome, hypertension, acid reflux, rheumatoid arthritis, who lives at [facility] half-way, who was noted to have slurred speech and right-sided facial droop with right-sided weakness. The patient is non ambulatory at her baseline. She is a poor historian with dementia. She was noted to be febrile with fever of 104 at the time of her admission. Fever was noted at [facility]. Patient denies any headaches, neck or back pain. Patient denies chest pain, shortness of breath, dysphagia, dysarthria, diplopia or urinary incontinence. Patient was noted to have George-Farris breathing while she was admitted at intensive care unit. There was a concern whether the patient had suffered a stroke due to her breathing pattern. She had episodes of apneas with irregular breathing suspicious for George-Farris breathing. ALLERGIES: BENZOCAINE, CEPHALOSPORIN, CIPROFLOXACIN, PENICILLIN, SULFA, MORPHINE, AMBIEN, ASPIRIN, HYDROCODONE. PAST MEDICAL HISTORY: 1. Pelvic fracture. 2. Obstructive sleep apnea syndrome. 3. COPD. 4. Atrial fibrillation. 5. Anemia. 6. Rheumatoid arthritis. 7. Dyslipidemia. 8. Hypertension. 9. Acid reflux. 10. Vitamin B12 deficiency. 11. Alzheimer's dementia. 12. Iron-deficiency. 13. Pacemaker placement. SOCIAL HISTORY: Patient is a DO NOT RESUSCITATE and DO NOT INTUBATE. She lives at [facility]. FAMILY HISTORY: Noncontributory. REVIEW OF SYSTEMS: All systems were reviewed and were found to be noncontributory except as mentioned in history present illness. HOME MEDICATIONS: - Abilify 2 mg by mouth nightly - atenolol 50 mg by mouth twice a day - leflunomide 20 mg by mouth daily - Nuedexta - oxycodone 2.5 mg by mouth twice a day - prednisone 5 mg by mouth daily - primidone 100 mg by mouth daily - Xarelto 20 mg by mouth daily - atenolol 50 mg by mouth daily - isosorbide mononitrate 60 mg by mouth daily PHYSICAL EXAMINATION: Pulse 118, blood pressure 104/59, 97% saturation on room air. Heart: Irregularly irregular. Lungs: Clear to auscultation. No pedal edema. No gross musculoskeletal abnormalities. Ear/throat/nose examination is within normal limits. Patient is awake, alert and oriented to place, person, month, and year. Her voice is soft. No facial weakness. Tongue and uvula are midline. 5/5 strength in all four extremities. No dysmetria. She has decreased cold, pinprick sensation in her feet. Gait could not be tested. Deep tendon flexes are 1+ in arms and knees and absent at ankles. DIAGNOSTIC STUDIES: CT scan of her head showed small vessel ischemic disease of brain without any acute stroke. CBC shows with hemoglobin 10.8, and normal basic metabolic profile. Her CO2 was 27 and PO2 was 126. ASSESSMENT: 1. Possible George-Farris breathing, which can be multifactorial and usual causes include congestive heart failure, metabolic encephalopathy and stroke. 2. My suspicion of index for stroke is low as the patient does not have any other focal neurological deficits. Likely her metabolic encephalopathy has caused George-Farris breathing, which will improve and then encephalopathy improves. 3. Atrial fibrillation. PLAN: 1. Continue Xarelto 20 mg by mouth daily. 2. Continue Abilify 2 mg by mouth nightly. 3. Patient is already on CPAP for obstructive sleep apnea syndrome, which generally does not help George-Farris breathing. MTDD
[2016-10-04] MEDS: SLF 3 ML SYR IV PRN ×2 (09:24→16:13)
[2016-10-04] MEDS: ACETAMINOPHEN 500 MG TAB PO SCH ×3 (09:25→20:16)
[2016-10-04] MEDS: DIGOXIN 0.125 MG TAB PO SCH (09:26)
[2016-10-04] MEDS: predniSONE 5 MG TAB PO SCH (09:26)
[2016-10-04] MEDS: ATENOLOL 50 MG TAB PO SCH ×2 (09:27→20:16)
[2016-10-04] MEDS: ROSUVASTATIN 10 MG TAB (CRESTOR) PO SCH (09:28)
[2016-10-04] MEDS: FERROUS SULFATE 325MG TAB PO SCH (09:28)
[2016-10-04] MEDS: POLYVINYL ALCOHOL OPHTH SOLN 15 ML(LIQUITEARS) OU SCH ×4 (09:29→20:16)
[2016-10-04] MEDS: NITROFURANTOIN (MACROBID) 100 MG CAP PO SCH (10:10)
[2016-10-04] MEDS: PRIMIDONE 50 MG TAB PO SCH (10:10)
[2016-10-04] MEDS: RIVAROXABAN 20 MG TAB (XARELTO) PO SCH (17:28)
--- NOTE | 2016-10-04 17:31 | IPN ---
DATE: 10/04/2016 SUBJECTIVE: The patient is seen and examined in the room today. Patient, continues to have poor oral intake. The patient only takes liquids. She refuses to eat thickened diet. No events observed on telemetry. No recurrence of tachycardia. OBJECTIVE: VITAL SIGNS: Temperature is 98.1, pulse is 83, respirations 22, blood pressure is 124/61, oxygen saturation is 93% with 1 liter nasal cannula. GENERAL: Patient is alert, oriented and awake. Answers some questions. Has slurred speech. Follows commands. HEENT: Normocephalic, atraumatic. CARDIOVASCULAR: Irregularly irregular, heart rate is between 70-80s. LUNGS: Decreased breath sounds bilaterally. Minor crackles in the lung base. ABDOMEN: Soft, nontender, nondistended. Bowel sounds present. EXTREMITIES: Bilateral pitting edema. No sign of cyanosis. LABORATORY DATA: WBC 7.7, hemoglobin 12.3, hematocrit 38.6, platelet count is 210. Sodium is 141, potassium 3.8, chloride is 107, carbon dioxide is 28, BUN 16, creatinine 0.86, GFR greater than 60, fasting glucose is 104, calcium is 9.2, total bilirubin is 0.4, AST 19, ALT 56, alkaline phosphatase is 134, total protein is 6.7. ASSESSMENT AND PLAN: 1. Atrial fibrillation with rapid ventricular response (RVR). The patient had a loading dose of digoxin and heart rate recovered back to satisfactory rate. I have switched the patient's Digoxin to oral form. The patient continues taking atenolol 50 mg by mouth twice a day. The patient is continued on Xarelto. 2. Tachybrady syndrome with a pacemaker. 3. Obstructive sleep apnea, on bilevel positive airway pressure (BiPAP). We will follow with correction facility to see whether patient will have a BiPAP machine when patient is ready for discharge. 4. Grade 3 or grade 4 left ventricular diastolic dysfunction. Echocardiogram was performed on 09/23/2016. Patient also has an elevated brain natriuretic peptide (BNP). I started IV diuresis. The patient did have negative output in the last few days. We will continue to monitor input, output, and daily weights. 5. Acute metabolic encephalopathy. Neurology has been consulted, who recommends to continue current anticoagulation regimen. Per evaluation, the suspicion index for stroke is low. 6. Urinary tract infection (UTI), culture grew Escherichia (E) coli. The patient has been taking Macrobid. 7. Transaminitis, possibly due to patient's previous physical distress, improving. 8. Elevated ammonia level. The patient had a dose of Lactulose and ammonia level has been improving. We will discontinue Lactulose for now. 9. Gastroesophageal reflux disease. 10. Alzheimer's dementia. 11. History of deep vein thrombosis (DVT), on Xarelto. 12. Deep vein thrombosis (DVT) prophylaxis. The patient is on Xarelto.
[2016-10-04] MEDS: VITAMIN D 1,000 INTERNATIONAL UNITS TABLET PO SCH (20:16)
[2016-10-05] MEDS: FUROSEMIDE 40 MG/4 ML VIAL (J1940) IV SCH ×3 (00:23→16:05)
[2016-10-05] MEDS: SLF 3 ML SYR IV SCH ×3 (04:43→20:19)
[2016-10-05 06:00] VITALS: BP 130/58
[2016-10-05 06:23] LABS: MEAN CORPUSCULAR HEMOGLOBIN 27.4 pg (27.0-33.0); MEAN CORPUSCULAR VOLUME 88.4 fl (80.0-96.0); RED CELL DISTRIBUTION WIDTH 16.3 % (11.5-14.5); WHITE BLOOD COUNT 7.3 K/mm3 (4.0-10.0)
[2016-10-05 06:38] LABS: ALBUMIN 2.2 GM/DL (3.2-5.2); ALKALINE PHOSPHATASE 144 U/L (45-117); ALT/SGPT 45 U/L (12-78); ANION GAP 6 MEQ/L (8-16); AST/SGOT 17 U/L (15-37); BILIRUBIN,TOTAL 0.3 MG/DL (0.2-1.0); BLOOD UREA NITROGEN 18 MG/DL (7-18); CALCIUM LEVEL 9.1 MG/DL (8.8-10.2); CARBON DIOXIDE LEVEL 30 MEQ/L (21-32); CHLORIDE LEVEL 106 MEQ/L (98-107); GLOMERULAR FILTRATION RATE > 60.0 (>32); GLUCOSE, FASTING 111 MG/DL (83-110); POTASSIUM SERUM 3.4 MEQ/L (3.5-5.1); SODIUM LEVEL 142 MEQ/L (136-145); TOTAL PROTEIN 6.6 GM/DL (6.4-8.2)
[2016-10-05] MEDS: PRIMIDONE 50 MG TAB PO SCH (07:30)
[2016-10-05] MEDS: DIGOXIN 0.125 MG TAB PO SCH (07:31)
[2016-10-05] MEDS: ACETAMINOPHEN 500 MG TAB PO SCH ×3 (07:31→20:18)
[2016-10-05] MEDS: predniSONE 5 MG TAB PO SCH (07:31)
[2016-10-05] MEDS: ROSUVASTATIN 10 MG TAB (CRESTOR) PO SCH (07:32)
[2016-10-05] MEDS: POLYVINYL ALCOHOL OPHTH SOLN 15 ML(LIQUITEARS) OU SCH ×4 (07:32→20:18)
[2016-10-05] MEDS: FERROUS SULFATE 325MG TAB PO SCH (07:32)
[2016-10-05] MEDS: ATENOLOL 50 MG TAB PO SCH ×2 (07:32→20:18)
[2016-10-05 14:00] VITALS: BP 124/82
[2016-10-05] MEDS: RIVAROXABAN 20 MG TAB (XARELTO) PO SCH (17:17)
[2016-10-05] MEDS: POTASSIUM CHLORIDE 10 MEQ SR TABLET PO SCH (17:18)
--- NOTE | 2016-10-05 17:39 | IPN ---
DATE: 10/05/2016 SUBJECTIVE: The patient is seen today. No overnight events reported. The patient continues to have poor oral intake. Attending will continue to adjust the patient's diuretic. OBJECTIVE: VITAL SIGNS: Temperature 96.3, pulse is 70, respirations 18, blood pressure 138/58, pulse oximetry 98% with two liters nasal cannula. GENERAL: No sign of acute distress. The patient is alert and awake, not able to follow commands, with slurred speech. HEENT: Normocephalic, atraumatic. CARDIOVASCULAR: Irregularly irregular. Rate controlled. Average heart rate around 70s. LUNGS: Decreased breath sounds bilaterally. Minor crackles at lung bases. ABDOMEN: Soft, nontender, nondistended. Bowel sounds present. EXTREMITIES: Bilateral pitting edema. No sign of cyanosis. LABORATORY DATA: WBC is 7.3, hemoglobin is 11.5, hematocrit 37, platelet count 212. Sodium is 142, potassium 3.4, chloride 106, carbon dioxide 30, BUN 18, creatinine 0.9, GFR greater than 60, fasting glucose 111, calcium 9.1, total bilirubin 0.3, AST 17, ALT 45, alkaline phosphatase 144. BNP is 1090. ASSESSMENT AND PLAN: 1. Grade 3-4 left ventricular diastolic dysfunction. Currently the patient is on intravenous (IV) Lasix diuresis. The patient is still requiring further diuresis for patient's overload. Will monitor intake and output and daily weight. 2 atrial fibrillation with rapid ventricular rate (RVR). The patient has been taking atenolol along with oral digoxin. The heart rate maintained nicely with heart rate around 70s. The patient will continue on Xarelto. 3. Tachy-emili syndrome on a pacemaker. 4. Obstructive sleep apnea (AC), on bilevel positive airway pressure (BiPAP). We will need to see if patient has a availability of BiPAP in the correction environment. 5. Urinary tract infection (UTI). Culture grew Escherichia (E.) coli. The patient finished a course of Macrobid. 6. Acute metabolic encephalopathy. Per neurology, the suspicion index for stroke is low. Recommend to continue current anticoagulation. 7. Transaminitis, possibly secondary to previous physical distress, now aspartate transaminase (AST), and alanine transaminase (ALT) have returned to baseline. 8. History of elevated ammonia level. The patient had Lactulose previously and ammonia level returned to baseline. 9. Gastroesophageal reflux disease. 10. Alzheimer's dementia. 11. History of deep vein thrombosis (DVT), on Xarelto. 12. Deep vein thrombosis (DVT) prophylaxis. The patient is currently on Xarelto.
[2016-10-05] MEDS: VITAMIN D 1,000 INTERNATIONAL UNITS TABLET PO SCH (20:18)
[2016-10-05 22:00] VITALS: BP 104/48
[2016-10-06] MEDS: FUROSEMIDE 40 MG/4 ML VIAL (J1940) IV SCH ×3 (01:32→16:32)
[2016-10-06] MEDS: SLF 3 ML SYR IV SCH ×3 (05:43→21:00)
[2016-10-06 06:00] VITALS: BP 117/68
[2016-10-06 06:53] LABS: MEAN CORPUSCULAR HGB CONC 31.8 g/dl (32.0-36.5); MEAN CORPUSCULAR VOLUME 88.1 fl (80.0-96.0); RED CELL DISTRIBUTION WIDTH 16.3 % (11.5-14.5)
[2016-10-06 07:13] LABS: ALBUMIN 2.2 GM/DL (3.2-5.2); ALBUMIN/GLOBULIN RATIO 0.52 (1.00-1.93); ALKALINE PHOSPHATASE 119 U/L (45-117); ALT/SGPT 35 U/L (12-78); ANION GAP 6 MEQ/L (8-16); AST/SGOT 18 U/L (15-37); BILIRUBIN,TOTAL 0.3 MG/DL (0.2-1.0); BLOOD UREA NITROGEN 19 MG/DL (7-18); CALCIUM LEVEL 9.2 MG/DL (8.8-10.2); CARBON DIOXIDE LEVEL 28 MEQ/L (21-32); CHLORIDE LEVEL 102 MEQ/L (98-107); CREATININE FOR GFR 0.71 MG/DL (0.55-1.02); GLOMERULAR FILTRATION RATE > 60.0 (>32); GLUCOSE, FASTING 108 MG/DL (83-110); POTASSIUM SERUM 3.6 MEQ/L (3.5-5.1); SODIUM LEVEL 136 MEQ/L (136-145); TOTAL PROTEIN 6.4 GM/DL (6.4-8.2)
[2016-10-06] MEDS: DIGOXIN 0.125 MG TAB PO SCH (07:54)
[2016-10-06] MEDS: FERROUS SULFATE 325MG TAB PO SCH (07:55)
[2016-10-06] MEDS: predniSONE 5 MG TAB PO SCH (07:55)
[2016-10-06] MEDS: ATENOLOL 50 MG TAB PO SCH ×2 (07:55→21:01)
[2016-10-06] MEDS: ACETAMINOPHEN 500 MG TAB PO SCH ×3 (07:56→20:59)
[2016-10-06] MEDS: PRIMIDONE 50 MG TAB PO SCH (07:56)
[2016-10-06] MEDS: ROSUVASTATIN 10 MG TAB (CRESTOR) PO SCH (07:56)
[2016-10-06] MEDS: POTASSIUM CHLORIDE 10 MEQ SR TABLET PO SCH (07:56)
[2016-10-06] MEDS: POLYVINYL ALCOHOL OPHTH SOLN 15 ML(LIQUITEARS) OU SCH ×4 (07:57→21:00)
[2016-10-06 14:00] VITALS: BP 109/56
[2016-10-06] MEDS: RIVAROXABAN 20 MG TAB (XARELTO) PO SCH (17:57)
[2016-10-06] MEDS: VITAMIN D 1,000 INTERNATIONAL UNITS TABLET PO SCH (20:59)
[2016-10-06 22:00] VITALS: BP 123/59
[2016-10-07] MEDS: FUROSEMIDE 40 MG/4 ML VIAL (J1940) IV SCH ×3 (00:12→16:08)
[2016-10-07] MEDS: SLF 3 ML SYR IV SCH ×3 (05:20→20:54)
[2016-10-07 06:00] VITALS: BP 129/79
[2016-10-07 06:46] LABS: MEAN CORPUSCULAR HEMOGLOBIN 27.9 pg (27.0-33.0); MEAN CORPUSCULAR HGB CONC 32.2 g/dl (32.0-36.5); MEAN CORPUSCULAR VOLUME 86.8 fl (80.0-96.0); RED CELL DISTRIBUTION WIDTH 16.6 % (11.5-14.5); WHITE BLOOD COUNT 5.1 K/mm3 (4.0-10.0)
[2016-10-07 07:10] LABS: ALBUMIN 2.2 GM/DL (3.2-5.2); ALBUMIN/GLOBULIN RATIO 0.49 (1.00-1.93); ALKALINE PHOSPHATASE 112 U/L (45-117); ALT/SGPT 31 U/L (12-78); ANION GAP 6 MEQ/L (8-16); AST/SGOT 15 U/L (15-37); BILIRUBIN,TOTAL 0.4 MG/DL (0.2-1.0); BLOOD UREA NITROGEN 20 MG/DL (7-18); CALCIUM LEVEL 9.5 MG/DL (8.8-10.2); CARBON DIOXIDE LEVEL 32 MEQ/L (21-32); CHLORIDE LEVEL 103 MEQ/L (98-107); CREATININE FOR GFR 0.74 MG/DL (0.55-1.02); GLOMERULAR FILTRATION RATE > 60.0 (>32); GLUCOSE, FASTING 96 MG/DL (83-110); POTASSIUM SERUM 3.5 MEQ/L (3.5-5.1); SODIUM LEVEL 141 MEQ/L (136-145); TOTAL PROTEIN 6.7 GM/DL (6.4-8.2)
[2016-10-07] MEDS: DIGOXIN 0.125 MG TAB PO SCH (08:45)
[2016-10-07] MEDS: PRIMIDONE 50 MG TAB PO SCH (08:45)
[2016-10-07] MEDS: predniSONE 5 MG TAB PO SCH (08:45)
[2016-10-07] MEDS: POTASSIUM CHLORIDE 10 MEQ SR TABLET PO SCH (08:45)
[2016-10-07] MEDS: FERROUS SULFATE 325MG TAB PO SCH (08:46)
[2016-10-07] MEDS: ROSUVASTATIN 10 MG TAB (CRESTOR) PO SCH (08:46)
[2016-10-07] MEDS: ACETAMINOPHEN 500 MG TAB PO SCH ×3 (08:46→20:53)
[2016-10-07] MEDS: ATENOLOL 50 MG TAB PO SCH ×2 (08:46→20:54)
[2016-10-07] MEDS: POLYVINYL ALCOHOL OPHTH SOLN 15 ML(LIQUITEARS) OU SCH ×4 (08:47→20:54)
[2016-10-07 14:00] VITALS: BP 132/76
[2016-10-07] MEDS: RIVAROXABAN 20 MG TAB (XARELTO) PO SCH (17:42)
[2016-10-07 20:00] VITALS: BP 125/79
[2016-10-07] MEDS: VITAMIN D 1,000 INTERNATIONAL UNITS TABLET PO SCH (20:51)
[2016-10-08] MEDS: FUROSEMIDE 40 MG/4 ML VIAL (J1940) IV SCH ×2 (00:13→08:29)
[2016-10-08] MEDS: SLF 3 ML SYR IV SCH (05:14)
[2016-10-08 06:00] VITALS: BP 113/64
[2016-10-08 06:52] LABS: MEAN CORPUSCULAR HEMOGLOBIN 27.8 pg (27.0-33.0); MEAN CORPUSCULAR HGB CONC 32.1 g/dl (32.0-36.5); MEAN CORPUSCULAR VOLUME 86.8 fl (80.0-96.0); RED CELL DISTRIBUTION WIDTH 16.5 % (11.5-14.5); WHITE BLOOD COUNT 7.7 K/mm3 (4.0-10.0)
[2016-10-08 07:02] LABS: ALBUMIN 2.4 GM/DL (3.2-5.2); ALBUMIN/GLOBULIN RATIO 0.52 (1.00-1.93); ALKALINE PHOSPHATASE 114 U/L (45-117); ALT/SGPT 26 U/L (12-78); ANION GAP 7 MEQ/L (8-16); AST/SGOT 16 U/L (15-37); BILIRUBIN,TOTAL 0.3 MG/DL (0.2-1.0); BLOOD UREA NITROGEN 25 MG/DL (7-18); CALCIUM LEVEL 9.6 MG/DL (8.8-10.2); CARBON DIOXIDE LEVEL 30 MEQ/L (21-32); CHLORIDE LEVEL 98 MEQ/L (98-107); CREATININE FOR GFR 0.87 MG/DL (0.55-1.02); GLOMERULAR FILTRATION RATE > 60.0 (>32); GLUCOSE, FASTING 130 MG/DL (83-110); POTASSIUM SERUM 3.8 MEQ/L (3.5-5.1); SODIUM LEVEL 135 MEQ/L (136-145)
[2016-10-08] MEDS: ROSUVASTATIN 10 MG TAB (CRESTOR) PO SCH (08:29)
[2016-10-08] MEDS: predniSONE 5 MG TAB PO SCH (08:29)
[2016-10-08] MEDS: FERROUS SULFATE 325MG TAB PO SCH (08:29)
[2016-10-08] MEDS: PRIMIDONE 50 MG TAB PO SCH (08:30)
[2016-10-08] MEDS: ACETAMINOPHEN 500 MG TAB PO SCH (08:30)
[2016-10-08 08:31] VITALS: BP 113/64
[2016-10-08] MEDS: POTASSIUM CHLORIDE 10 MEQ SR TABLET PO SCH (08:31)
[2016-10-08] MEDS: DIGOXIN 0.125 MG TAB PO SCH (08:31)
[2016-10-08] MEDS: ATENOLOL 50 MG TAB PO SCH (08:31)
[2016-10-08] MEDS: POLYVINYL ALCOHOL OPHTH SOLN 15 ML(LIQUITEARS) OU SCH (08:32)
[2016-10-08] MEDS ORDERED: LASI40TA PO (10:59)
--- NOTE | 2016-10-11 19:47 | DSES ---
DATE OF ADMISSION: 09/22/2016 DATE OF DISCHARGE: 10/08/2016 PRIMARY CARE PROVIDER: Dr. Fozia Almanzar CONSULTANTS: Pulmonology. Infectious disease specialist, Dr. Yin. PROCEDURES: None. COMPLICATIONS: None. ADMISSION/DISCHARGE DIAGNOSES: 1. 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 2. Atrial fibrillation with rapid ventricular response (RVR). 3. Tachy-emili syndrome, on pacemaker. 4. Obstructive sleep apnea (AC), on bilevel positive airway pressure (BiPAP). 5. Urinary tract infection. 6. Acute metabolic encephalopathy. 7. Transaminitis. 8. History of elevated ammonia level. 9. Gastroesophageal reflux disease. 10. Alzheimer's dementia. 11. History of deep vein thrombosis (DVT). HOSPITALIZATION COURSE: The patient is an 81-year-old female who presented to [facility] on 09/22/2016 with slurred speech and right-sided facial droop and right-sided body weakness. MRI was not able to be performed due to the pacemaker. The patient received diagnostic study from CT scan. Neurology was consulted. The patient was also admitted for sepsis secondary to urinary tract infection (UTI), and the patient was started on broad-spectrum antibiotic coverage due to prior culture results. The patient was started on intravenous (IV) fluids for the sepsis. However, IV fluid was on hold later due to the congestive heart failure (CHF) exacerbation. The patient's symptoms started to improve within 1-2 days of hospitalization, and infectious disease specialist, Dr. Roxie Yin was consulted, and the patient's antibiotic regimen being adjusted. On 09/26/2016, in the evening time, the patient was found to have increased lethargy and witnessed apnea. The patient was assessed urgently, and it was found the patient had severe AC and the chronometer repairer was consulted. With further investigation, it was found out that before hospitalization, the patient has not been very compliant with NIPPV and the patient has not been using the machine as instructed in the nursing facility. The patient's apnea and AC was treated with BiPAP, settings were adjusted by the chronometer repairer's social media assistant. Later, the patient had a swallow study performed and recommended the patient be on a pureed diet, dietary changes per recommendation. The patient was observed in the intensive care unit (ICU). The patient was also found to be in CHF exacerbation and IV diuresis was also initiated. The patient was also found to have worsening atrial fibrillation. Amiodarone and digoxin was also given urgently, and the patient also received a stat dose of Lopressor. With management, the patient showed clinical improvement and patient was more stable, then the patient was transferred out of telemetry floor to the medical-surgical floor. On 10/02/2016, the patient had another acute worsening of her atrial fibrillation, heart rate being unable to be controlled. Heart rate maintained at greater than 140 and the patient was transferred back to the telemetry. The patient started digoxin loading. On 10/03/2016, the patient also started to show recurrent signs of CHF exacerbation and the patient was switched back to IV diuresis. With digoxin combined with beta sravani, the patient's heart rate became very well controlled and digoxin switched to oral form. The patient was more hemodynamically stable, and the patient was transferred back to the medical-surgical floor. With medical management, the patient's condition is approaching her baseline. However, due to the weekend, 10/06/2016 and 10/07/2016, the patient could be stable enough for discharge. However, due to no transportation available for the nursing facility and it was not clear if the patient had NIPPV ready in the residential for the patient, the patient could have been alternate level of care (ALC) status but no order was put in the computer. On 10/08/2016, the patient was examined and medications reviewed. All the laboratory data and vital signs were closely examined, and we also contacted nursing facility and patient's family member to ensure the NIPPV was delivered to the nursing facility. Arrangements were made, and the patient was transferred back to [facility] with the recommendation to continue the digoxin and also the diuretic. The diuretic dose will be adjusted when the patient is evaluated by the primary care provider within a week. When reviewing the patient's home medications, the patient does not have any diuretic, even though the patient has grade 3-4 diastolic heart failure, and the patient required two IV diuresis while the patient was an inpatient and strongly recommended patient should continue to use NIPPV when the patient is in the residential. The patient had a significant event occur, suspect due to the AC OBJECTIVE: Vital Signs: Temperature is 97.2, pulse is 66, respirations 18, blood pressure is 113/64, pulse oximetry is 96% in room air. LABORATORY DATA: WBC is 7.7, hemoglobin 12.5, hematocrit 39, platelet count is 210. Sodium is 135, potassium is 3.8, chloride is 98, carbon dioxide is 30, BUN 25, creatinine is 0.87, GFR is greater than 60, fasting glucose 130, calcium is 9.6, total bilirubin is 0.3, AST 16, ALT 26, alkaline phosphatase is 114, total protein is 7, albumin is 2.4. Microbiology: Blood culture from 09/22/2016 is negative after 5 days times two sets. Urine culture from 09/22/2016 is positive for Escherichia (E) coli. IMAGING STUDIES: Chest x-ray on 09/22/2016 showed chronic changes with suspected bilateral atelectasis. CT of the head without contrast on 09/22/2016 showed age-related atrophy and microvascular ischemic changes. No acute intracranial hemorrhage, infarction or mass effect. CT of the chest without contrast on 09/23/2016 showed cardiomegaly with small to moderate pericardial effusion, bilateral atelectasis, small to moderate effusion and cephalization. Findings compatible with CHF and pulmonary edema. Underlying pneumonia cannot definitely be excluded. CT of the head without contrast on 09/23/2016 showed age-related atrophy and microvascular ischemic changes. No acute intracranial hemorrhage, infarction/ mass effect. Chest x-ray on 09/26/2016 showed cardiomegaly and chronic changes without evidence of acute infiltrate. 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 Small vessel ischemic disease. Moderate volume loss. Chest x-ray on 09/26/2016 showed no evidence of acute pulmonary pathology. CT angiogram of the head on 09/27/2016 showed very limited examination, demonstrating no definitive aneurysm or AV malformation. Atherosclerotic disease. Chest x-ray on 09/30/2016 showed interstitial edema. Left lower lobe atelectasis or infiltrate. Cardiomegaly. DISCHARGE MEDICATIONS: - Lasix 40 mg by mouth twice a day - Tylenol 1000 mg by mouth three times a day - Abilify 2 mg by mouth nightly - atenolol 15 mg by mouth twice a day - Dulcolax 10 mg per rectum daily as needed for constipation - vitamin D3 2000 units by mouth nightly - ferrous sulfate 325 mg by mouth daily - isosorbide mononitrate 60 mg by mouth every morning - leflunomide 20 mg by mouth every morning - Milk of Magnesia 30 mL by mouth daily as needed for constipation - nitroglycerin 0.4 mg sublingual every 5 minutes as needed for chest pain - Nuedexta 20-10 mg one tablet by mouth twice a day - oxycodone 2.5 mg by mouth twice a day as needed for pain - prednisone 5 mg by mouth daily - primidone 100 mg by mouth daily - Xarelto 20 mg by mouth daily DISCHARGE INSTRUCTIONS: Discontinue line. Discharge to [facility]. Activity as tolerated. Fall precautions. Pureed diet as tolerated. Patient should follow with fluid restriction for her congestive heart failure. Patient to followup with primary care provider within 1 week. Patient should continue the digoxin for her atrial fibrillation, rate control. Patient's diuretic regimen needs to be re-evaluated by the primary care provider due to the grade 3-4 congestive heart failure. The patient is strongly recommended to use NIPPV for her AC. DISCHARGE TIME: Greater than 30 minutes. DISCHARGE CONDITION: Fair. MTDD
== END 2016-10-08 13:15 | DRG 871 ==
LOC: M ED 09:00 → EDBD 09:00 → M ED INP 12:59 → M PCU 14:07 → M MS5PR 09-25 11:11 → M ICU 09-26 20:12 → M MS5PR 09-30 11:03 → M PCU 10-02 12:51 → M MS5PR 10-04 16:10 → M PCU 10-04 16:12 → M MS5PR 10-04 17:52
PROVIDERS: ADMIT Hospitalist; ATTEND Internal Medicine
DX: A41.9 Sepsis, unspecified organism (principal); I50.33 Acute on chronic diastolic (congestive) heart failure; G93.41 Metabolic encephalopathy; N39.0 Urinary tract infection, site not specified; E87.3 Alkalosis; I13.0 Hypertensive heart and chronic kidney disease with heart failure and stage 1 through stage 4 chronic kidney disease, or unspecified chronic kidney disease; G45.9 Transient cerebral ischemic attack, unspecified; N18.3 Chronic kidney disease, stage 3 (moderate); I48.0 Paroxysmal atrial fibrillation; G47.33 Obstructive sleep apnea (adult) (pediatric); Z66 Do not resuscitate; K21.9 Gastro-esophageal reflux disease without esophagitis; Z95.0 Presence of cardiac pacemaker; G30.9 Alzheimer's disease, unspecified; F02.80 Dementia in other diseases classified elsewhere, unspecified severity, without behavioral disturbance, psychotic disturbance, mood disturbance, and anxiety; Z91.19 Patient's noncompliance with other medical treatment and regimen; Z79.899 Other long term (current) drug therapy; B96.29 Other Escherichia coli [E. coli] as the cause of diseases classified elsewhere; Z86.718 Personal history of other venous thrombosis and embolism; J44.9 Chronic obstructive pulmonary disease, unspecified; K59.00 Constipation, unspecified; M06.9 Rheumatoid arthritis, unspecified; Z88.8 Allergy status to other drugs, medicaments and biological substances; Z88.0 Allergy status to penicillin; Z88.2 Allergy status to sulfonamides; Z88.5 Allergy status to narcotic agent; Z79.01 Long term (current) use of anticoagulants; E53.8 Deficiency of other specified B group vitamins; D69.6 Thrombocytopenia, unspecified; E87.6 Hypokalemia; R19.7 Diarrhea, unspecified

== ENCOUNTER → 2016-10-09 | Outpatient (REF) ==
[~2016-10-09] MED LIST changes: +MYSO50TA5 PO; +NITR100C2 PO; +NUED20CA PO; +PRED5TA PO; +ROXI1TAB2 PO; +TYLE500T78 PO; +VITA-122 PO; +XARE20TA PO
[2016-10-09 11:34] LABS: MEAN CORPUSCULAR HEMOGLOBIN 27.9 pg (27.0-33.0); MEAN CORPUSCULAR HGB CONC 31.5 g/dl (32.0-36.5); MEAN CORPUSCULAR VOLUME 88.7 fl (80.0-96.0); RED CELL DISTRIBUTION WIDTH 16.8 % (11.5-14.5); WHITE BLOOD COUNT 5.6 K/mm3 (4.0-10.0)
[2016-10-09 11:59] LABS: ANION GAP 8 MEQ/L (8-16); BLOOD UREA NITROGEN 34 MG/DL (7-18); CALCIUM LEVEL 9.5 MG/DL (8.8-10.2); CARBON DIOXIDE LEVEL 31 MEQ/L (21-32); CHLORIDE LEVEL 98 MEQ/L (98-107); CREATININE FOR GFR 0.94 MG/DL (0.55-1.02); GLOMERULAR FILTRATION RATE > 60.0 (>32); GLUCOSE, FASTING 131 MG/DL (83-110); POTASSIUM SERUM 4.2 MEQ/L (3.5-5.1); SODIUM LEVEL 137 MEQ/L (136-145)
== END ==
PROVIDERS: ATTEND Internal Medicine
DX: I50.9 Heart failure, unspecified (principal)